=== PATIENT | female | born 1955 | race African-American/Black ===

== ENCOUNTER 2016-11-29 03:15 | Inpatient (IN) | payer OTHER ==
[~2016-11-29] VITALS: Ht 157.5 cm; Wt 60.4 kg
[2016-11-29 04:50] VITALS: BP 113/68
[2016-11-29] MEDS ORDERED: LISI40TA PO (05:55)
[2016-11-29] MEDS ORDERED: MEGE400O PO (05:55)
[2016-11-29] MEDS ORDERED: POTA10CA PO (05:55)
[2016-11-29] MEDS ORDERED: AMLO10TA4 PO (05:55)
[2016-11-29] MEDS ORDERED: ESCI5TAB24 PO (05:55)
[2016-11-29 07:50] VITALS: BP 100/64
[2016-11-29] MEDS ORDERED: HYDROCODONE/APAP 5/325MG TABLET. PO PRN (09:30)
[2016-11-29] MEDS ORDERED: ACETAMINOPHEN 325 MG TABLET. PO PRN (09:30)
[2016-11-29] MEDS ORDERED: ALBUTEROL SULFATE 2.5 MG/3 ML NEBU. NEB PRN (09:30)
[2016-11-29] MEDS ORDERED: ONDANSETRON PF 4 MG/2 ML VIAL. IV PRN (09:30)
[2016-11-29] MEDS ORDERED: hydrALAZINE 20 MG/ML VIAL. IVP PRN (09:30)
--- NOTE | 2016-11-29 09:40 | PDOC1 ---
History and Physical Current Medications Current Medications Current Medications Medications (Trade) Dose Ordered Sig/Isabel Start Time Stop Time Status Last Admin Dose Admin Acetaminophen (Tylenol) 325 mg PRN Q6HRS PRN 11/29/16 09:30 Acetaminophen/ Hydrocodone Bitart (Lortab 5/325) 1 tab PRN Q6HRS PRN 11/29/16 09:30 Albuterol Sulfate (Ventolin Neb Soln) 2.5 mg PRN Q4HRS PRN 11/29/16 09:30 Hydralazine HCl (Apresoline) 10 mg PRN Q4HRS PRN 11/29/16 09:30 Ondansetron HCl (Zofran) 4 mg PRN Q8HRS PRN 11/29/16 09:30 Allergies Allergies Allergies Coded Allergies Type Severity Reaction Last Updated Verified No Known Allergies Allergy Unknown 11/29/16 Yes ROS Review of System couldn't able to obtain, pt is alert, but not communicative, following commands , not talking to staff. Physical Exam Physical Exam GEN.: No apparent distress. Alert non verbal HEENT: Head is normocephalic, atraumatic NECK: Supple. LUNGS: Clear to auscultation. HEART: RRR, S1, S2 present. Peripheral pulses intact ABDOMEN: Soft, nontender. Positive bowel sounds. EXTREMITIES: Without any cyanosis. NEUROLOGIC: normal tone PSYCHIATRIC: flat affect, SKIN: No visible ulcerations Vitals Vitals Vital Signs Date Time Temp Pulse Resp B/P Pulse Ox O2 Delivery O2 Flow Rate FiO2 11/29/16 07:50 98.3 77 19 100/64 97 Room Air 98.3 Labs Labs Laboratory Tests Test 11/29/16 08:22 Troponin I Quantitative < 0.017ng/mL (0.000-0.055) Laboratory Tests Test 11/29/16 08:22 Troponin I Quantitative < 0.017ng/mL (0.000-0.055) VTE Prophylaxis Ordered VTE Prophylaxis Devices: Yes VTE Pharmacological Prophylaxi: Yes CRISTHIAN FRIEDMAN MD Nov 29, 2016 09:40
[2016-11-29] MEDS ORDERED: LEVOFLOXACIN PER PHARMACY MC PRN (10:00)
[2016-11-29] MEDS: IV NORMAL SALINE 1000ML BAG 1,000 ML IV SCH (10:00)
[2016-11-29] MEDS: METRONIDAZOLE 500mg PREMIX 100 ML IV SCH ×3 (10:00→22:08)
[2016-11-29 11:50] VITALS: BP 97/65
[2016-11-29 15:45] VITALS: BP 97/63
--- NOTE | 2016-11-29 17:44 | HP ---
ADMIT DATE: 11/29/2016 CHIEF COMPLAINT: Altered mental status. HISTORY OF PRESENT ILLNESS: A 61-year-old female patient with prior history of depression and hypertension, transferred from [facility] for altered mental status. At the time of my examination, I was not able to get any history from the patient. Most of the history obtained from the chart and staff members. Reportedly, the patient lives by herself at home and she was presented to [facility] for altered mental status upon initial evaluation. The patient was transferred to [facility] for further evaluation. The patient had initial lab work, which showed normal labs except for mild hypokalemia. Urine drug screen also negative. Her baseline status appears to be dementia, unknown type, with hypertension and depression. Her labs showed WBC 10.4, hemoglobin 11.8, and platelets of 230. INR is 1.0. Urine showed specific gravity 1.020, nitrites negative, leuk esterase negative, and a few WBC. Chemistry showed creatinine is 0.9, sodium is 142, potassium is 3.2, anion gap is 10. Troponins is 0.026. Urine drug screen negative for barbiturates, benzos, methadone, opiates, and PCP. Initial EKG did not show any acute ST-T wave changes, personally reviewed. At the time of my examination, the patient is alert, but not responding to any of my questions. As per the report, the patient has been transferred here for General Surgery consultation for possible cholecystitis. Also, she received IV Flagyl and IV ciprofloxacin. PAST MEDICAL HISTORY: Hypertension and depression. PAST SURGICAL HISTORY: . PERSONAL HISTORY: Not able to obtain. REVIEW OF SYSTEMS, PHYSICAL EXAMINATION: Please see my electronic H and P. LABORATORY DATA: Reviewed from the chart. EKG personally reviewed. ASSESSMENT: 1. Altered mental status, unclear etiology. 2. Unknown baseline status. 3. Alzheimer's disease. 4. Depression. 5. Hypertension. 6. Cholelithiasis per report. PLAN: 1. Keep patient n.p.o. I will get a CT of the head and order 1 more set of troponins. 2. Consult General Surgery. 3. I will also try to obtain images from [place] [facility]. 4. Continue IV fluids, keep the patient n.p.o. 5. IV Flagyl and ciprofloxacin until cleared by surgery. 6. We will try to obtain records from family. 7. No prior history obtained from the chart here. 8. Overall prognosis is guarded. 9. The patient is hemodynamically stable at this time. I did not see any source of infection on examination. CRISTHIAN FRIEDMAN MD DR: SUDHIR/marvin JOB#: [id number] / [id number] HARRY
[2016-11-29 19:19] VITALS: BP 113/72
[2016-11-29 22:51] VITALS: BP 124/80
[2016-11-30] VITALS (7 sets, daily range): BP systolic 107–126; BP diastolic 66–83
[2016-11-30 04:16] LABS: BASO % 0 % (0-3); EOS % 1 % (0-3); HEMATOCRIT 35.3 % (36.0-47.0); HEMOGLOBIN 11.6 g/dL (12.0-15.5); LYMPH # 3.3 x10^3/uL (1.0-4.8); LYMPH % 47 % (24-48); MEAN CORPUSCULAR HEMOGLOBIN 30 pg (25-35); MEAN CORPUSCULAR HGB CONC 33 g/dL (31-37); MEAN CORPUSCULAR VOLUME 93 fL (79-100); MONO % 7 % (0-9); NEUT % 45 % (31-73); PLATELET COUNT 184 x10^3/uL (140-400); RED CELL DISTRIBUTION WIDTH 15.3 % (11.5-14.5); WHITE BLOOD COUNT 7.2 x10^3/uL (4.0-11.0)
[2016-11-30 04:35] LABS: CALCIUM 9.6 mg/dL (8.5-10.1); CREATININE 0.6 mg/dL (0.6-1.0); POTASSIUM 3.6 mmol/L (3.5-5.1)
[2016-11-30] MEDS: METRONIDAZOLE 500mg PREMIX 100 ML IV SCH ×3 (05:02→23:41)
[2016-11-30] MEDS: IV NORMAL SALINE 1000ML BAG 1,000 ML IV SCH ×2 (05:27→23:41)
[2016-11-30] MEDS ORDERED: IV RINGERS,LACTATED 1000ML 1,000 ML IV SCH (09:17)
[2016-11-30] MEDS ORDERED: PROCHLORPERAZINE 10 MG/2 ML VIAL. IV PRN (09:30)
[2016-11-30] MEDS ORDERED: MORPHINE SULFATE 2 MG/ML DISP.SYRIN. IV PRN (09:30)
[2016-11-30] MEDS ORDERED: FENTANYL PF 100 MCG/2 ML VIAL. IV PRN ×2 (09:30)
[2016-11-30] MEDS ORDERED: HYDROMORPHONE 2 MG/ML VIAL. IV PRN (09:30)
[2016-11-30] MEDS ORDERED: LIDOCAINE 1% 1 ML SYRINGE. ID PRN (09:30)
[2016-11-30] MEDS ORDERED: HEPARIN 1,000 UNIT in IV NORMAL SALINE 1,000 ML for SURG PERIOP IRR ONE (10:18)
[2016-11-30] MEDS ORDERED: IOHEXOL 300 MG/ML 75 ML VIAL IV ONE ×2 (10:45→11:30)
[2016-11-30] MEDS ORDERED: CONTRAST GIVEN MC PRN ×2 (10:45→11:45)
[2016-11-30] MEDS ORDERED: IOHEXOL 240 MG/ML 50ML VIAL. PO ONE ×2 (10:45→11:30)
--- NOTE | 2016-11-30 12:50 | PDOC ---
PROGRESS NOTES Chief Complaint Chief Complaint cc: cholecystitis 1. Altered mental status, forgetfulness AO times 2 improving. possible due to dementia, 2. Dementia baseline status. 3. Alzheimer's disease. 4. Depression. 5. Hypertension. 6. Cholelithiasis with suspected cholecystitis. Plan NPO IVF GS following, planning for surgery today per RN, pt's baseline dementia getting worse lately CT abdomen/pelvis results pending continue cipro and Levaquin pain control History of Present Illness History of Present Illness no fever no chills better than yesterday Vitals Vitals Vital Signs Date Time Temp Pulse Resp B/P Pulse Ox O2 Delivery O2 Flow Rate FiO2 11/30/16 07:17 Room Air 11/30/16 07:00 98.9 85 18 123/67 98 98.9 Physical Exam General: Alert, Other (times 2 orientatin, name and place. ) Heart: Normal S1, Normal S2 Lungs: Clear, Wheezing Abdomen: Normal bowel sounds, Soft Extremities: No clubbing Labs LABS Laboratory Tests Test 11/30/16 03:33 White Blood Count 7.2x10^3/uL (4.0-11.0) Red Blood Count 3.80x10^6/uL (3.50-5.40) Hemoglobin 11.6g/dL (12.0-15.5) Hematocrit 35.3% (36.0-47.0) Mean Corpuscular Volume 93fL (79-100) Mean Corpuscular Hemoglobin 30pg (25-35) Mean Corpuscular Hemoglobin Concent 33g/dL (31-37) Red Cell Distribution Width 15.3% (11.5-14.5) Platelet Count 184x10^3/uL (140-400) Neutrophils (%) (Auto) 45% (31-73) Lymphocytes (%) (Auto) 47% (24-48) Monocytes (%) (Auto) 7% (0-9) Eosinophils (%) (Auto) 1% (0-3) Basophils (%) (Auto) 0% (0-3) Neutrophils # (Auto) 3.2x10^3uL (1.8-7.7) Lymphocytes # (Auto) 3.3x10^3/uL (1.0-4.8) Monocytes # (Auto) 0.5x10^3/uL (0.0-1.1) Eosinophils # (Auto) 0.0x10^3/uL (0.0-0.7) Basophils # (Auto) 0.0x10^3/uL (0.0-0.2) Sodium Level 143mmol/L (136-145) Potassium Level 3.6mmol/L (3.5-5.1) Chloride Level 108mmol/L (98-107) Carbon Dioxide Level 23mmol/L (21-32) Anion Gap 12 (6-14) Blood Urea Nitrogen 16mg/dL (7-20) Creatinine 0.6mg/dL (0.6-1.0) Estimated GFR (Cockcroft-Gault) 123.0 Glucose Level 80mg/dL (70-99) Calcium Level 9.6mg/dL (8.5-10.1) Lipase 138U/L (73-393) Comment Review of Relevant I have reviewed the following items emma (where applicable) has been applied. Labs Laboratory Tests Test 11/29/16 08:22 11/30/16 03:33 Troponin I Quantitative < 0.017ng/mL (0.000-0.055) White Blood Count 7.2x10^3/uL (4.0-11.0) Red Blood Count 3.80x10^6/uL (3.50-5.40) Hemoglobin 11.6g/dL (12.0-15.5) Hematocrit 35.3% (36.0-47.0) Mean Corpuscular Volume 93fL (79-100) Mean Corpuscular Hemoglobin 30pg (25-35) Mean Corpuscular Hemoglobin Concent 33g/dL (31-37) Red Cell Distribution Width 15.3% (11.5-14.5) Platelet Count 184x10^3/uL (140-400) Neutrophils (%) (Auto) 45% (31-73) Lymphocytes (%) (Auto) 47% (24-48) Monocytes (%) (Auto) 7% (0-9) Eosinophils (%) (Auto) 1% (0-3) Basophils (%) (Auto) 0% (0-3) Neutrophils # (Auto) 3.2x10^3uL (1.8-7.7) Lymphocytes # (Auto) 3.3x10^3/uL (1.0-4.8) Monocytes # (Auto) 0.5x10^3/uL (0.0-1.1) Eosinophils # (Auto) 0.0x10^3/uL (0.0-0.7) Basophils # (Auto) 0.0x10^3/uL (0.0-0.2) Sodium Level 143mmol/L (136-145) Potassium Level 3.6mmol/L (3.5-5.1) Chloride Level 108mmol/L (98-107) Carbon Dioxide Level 23mmol/L (21-32) Anion Gap 12 (6-14) Blood Urea Nitrogen 16mg/dL (7-20) Creatinine 0.6mg/dL (0.6-1.0) Estimated GFR (Cockcroft-Gault) 123.0 Glucose Level 80mg/dL (70-99) Calcium Level 9.6mg/dL (8.5-10.1) Lipase 138U/L (73-393) Laboratory Tests Test 11/30/16 03:33 White Blood Count 7.2x10^3/uL (4.0-11.0) Red Blood Count 3.80x10^6/uL (3.50-5.40) Hemoglobin 11.6g/dL (12.0-15.5) Hematocrit 35.3% (36.0-47.0) Mean Corpuscular Volume 93fL (79-100) Mean Corpuscular Hemoglobin 30pg (25-35) Mean Corpuscular Hemoglobin Concent 33g/dL (31-37) Red Cell Distribution Width 15.3% (11.5-14.5) Platelet Count 184x10^3/uL (140-400) Neutrophils (%) (Auto) 45% (31-73) Lymphocytes (%) (Auto) 47% (24-48) Monocytes (%) (Auto) 7% (0-9) Eosinophils (%) (Auto) 1% (0-3) Basophils (%) (Auto) 0% (0-3) Neutrophils # (Auto) 3.2x10^3uL (1.8-7.7) Lymphocytes # (Auto) 3.3x10^3/uL (1.0-4.8) Monocytes # (Auto) 0.5x10^3/uL (0.0-1.1) Eosinophils # (Auto) 0.0x10^3/uL (0.0-0.7) Basophils # (Auto) 0.0x10^3/uL (0.0-0.2) Sodium Level 143mmol/L (136-145) Potassium Level 3.6mmol/L (3.5-5.1) Chloride Level 108mmol/L (98-107) Carbon Dioxide Level 23mmol/L (21-32) Anion Gap 12 (6-14) Blood Urea Nitrogen 16mg/dL (7-20) Creatinine 0.6mg/dL (0.6-1.0) Estimated GFR (Cockcroft-Gault) 123.0 Glucose Level 80mg/dL (70-99) Calcium Level 9.6mg/dL (8.5-10.1) Lipase 138U/L (73-393) Medications Current Medications Acetaminophen (Tylenol) 325 mg PRN Q6HRS PRN PO MILD PAIN / TEMP; Start at 09:30 Acetaminophen/ Hydrocodone Bitart (Lortab 5/325) 1 tab PRN Q6HRS PRN PO MODERATE TO SEVERE PAIN; Start 11/29/16 at 09:30 Hydralazine HCl (Apresoline) 10 mg PRN Q4HRS PRN IVP ELEVATED BP, SEE COMMENTS ; Start 11/29/16 at 09:30 Ondansetron HCl (Zofran) 4 mg PRN Q8HRS PRN IV NAUSEA/VOMITING; Start 11/29/16 at 09:30 Albuterol Sulfate 2.5 mg 2.5 mg PRN Q4HRS PRN NEB SHORTNESS OF BREATH; Start at 09:30 Sodium Chloride 1,000 ml @ 75 mls/hr [id number] IV Last administered on 11/30/16 05:27; Start 11/29/16 at 10:00 Metronidazole (FLAGYL 500Mmg PREMIX) 100 ml @ 100 mls/hr Q8HRS IV Last administered on 11/30/16 05:02; Start 11/29/16 at 10:00 Levofloxacin/ Dextrose 1 each 1 each PRN DAILY PRN MC SEE COMMENTS; Start at 10:00 Levofloxacin/ Dextrose (LEVAQUIN 500mg PREMIX) 100 ml @ 100 mls/hr [id number] IV Last administered on 11/30/16t 05:27; Start 11/29/16 at 11:00 Fentanyl Citrate (Fentanyl 2ml Vial) 25 mcg PRN Q5MIN PRN IV MILD PAIN; Start 11/30/16 at 09:30; Stop 12/01/16 at 09:29 Fentanyl Citrate (Fentanyl 2ml Vial) 50 mcg PRN Q5MIN PRN IV MODERATE PAIN; Start 11/30/16 at 09:30; Stop 12/01/16 at 09:29 Morphine Sulfate 1 mg 1 mg PRN Q10MIN PRN IV SEVERE PAIN; Start 11/30/16 at 09: 30; Stop 12/01/16 at 09:29 Lactated Ringer's (Iv Lactated Ringers) 1,000 ml @ 0 mls/hr Q0M IV ; Start 11/30 at 09:17; Stop 11/30/16 at 21:16 Lidocaine HCl 2 ml 1X PRN PRN ID IV START; Start 11/30/16 at 09:30; Stop at 09:29 Hydromorphone HCl (Dilaudid) 0.5 mg PRN Q10MIN PRN IV SEV PAIN,Second choice; Start 11/30/16 at 09:30; Stop 12/01/16 at 09:29 Prochlorperazine Edisylate 5 mg 5 mg PACU PRN PRN IV NAUSEA; Start 11/30/16 at 09:30; Stop 12/01/16 at 09:29 Heparin Sodium (Porcine)/Sodium Chloride (Iv Sodium Chloride 0.9% 1000ml Bag) 1, 001 ml @ 1,001 mls/hr 1X PERIOP ONCE IRR ; Start 11/30/16 at 10:18; Stop at 11:17; Status DC Iohexol (Omnipaque 240 Mg/ml) 30 ml 1X ONCE PO ; Start 11/30/16 at 10:45; Stop 11/30/16 at 10:46; Status DC Iohexol (Omnipaque 300 Mg/ml) 75 ml 1X ONCE IV ; Start 11/30/16 at 10:45; Stop 11/30/16 at 10:46; Status DC Info (Do NOT chart on this entry -- for MONITORING) 1 each PRN DAILY PRN MC SEE COMMENTS; Start 11/30/16 at 10:45; Stop 12/02/16 at 10:44 Iohexol (Omnipaque 240 Mg/ml) 30 ml 1X ONCE PO ; Start 11/30/16 at 11:30; Stop 11/30/16 at 11:35; Status DC Iohexol (Omnipaque 300 Mg/ml) 75 ml 1X ONCE IV ; Start 11/30/16 at 11:30; Stop 11/30/16 at 11:35; Status DC Info (Do NOT chart on this entry -- for MONITORING) 1 each PRN DAILY PRN MC SEE COMMENTS; Start 11/30/16 at 11:45; Stop 12/02/16 at 11:44 Active Scripts Active Reported Lexapro (Escitalopram Oxalate) 5 Mg Tablet 5 Mg PO DAILY Norvasc (Amlodipine Besylate) 10 Mg Tablet 10 Mg PO DAILY Lisinopril 40 Mg Tablet 40 Mg PO DAILY Potassium Chloride 10 Meq Capsule.er 10 Meq PO DAILY Megace (Megestrol Acetate) 400 Mg/10 Ml Oral.susp 400 Mg PO TIDAC Vitals/I & O Vital Sign - Last 24 Hours 11/29/16 11/29/16 11/29/16 11/29/16 15:45 19:19 20:00 22:51 Temp 97.8 98.5 98.5 97.8 98.5 98.5 Pulse 82 86 89 Resp 18 16 B/P 97/63 113/72 124/80 Pulse Ox 100 99 98 O2 Delivery Room Air Room Air Room Air Room Air 11/30/16 11/30/16 11/30/16 03:41 07:00 07:17 Temp 98.1 98.9 98.1 98.9 Pulse 80 85 Resp 16 18 B/P 126/83 123/67 Pulse Ox 97 98 O2 Delivery Room Air Room Air Room Air Intake and Output 11/29/16 11/29/16 11/30/16 15:00 23:00 07:00 Intake Total 493 ml 0 ml Balance 493 ml 0 ml CRISTHIAN FRIEDMAN MD Nov 30, 2016 12:50
--- NOTE | 2016-11-30 14:29 | RAD ---
CT study of the abdomen and pelvis with contrast Clinical indications: Abdominal pain. Pancreatitis. Technique: After IV infusion of 75 cc of Omnipaque 300, helical CT scanning of the abdomen and pelvis was performed. GI contrast was administered per mouth. PQRS Compliance Statement: One or more of the following individualized dose reduction techniques were utilized for this examination: 1. Automated exposure control 2. Adjustment of the mA and/or kV according to patient size 3. Use of iterative reconstruction technique Comparison: None available. Findings: The liver and spleen are normal. Gallstones are seen within the gallbladder. The largest measures 2.5 cm. No gallbladder wall thickening is evident. There is dilatation of the extra hepatic biliary tree measuring up to 13 mm. There is a density within the common bile duct which could represent a common bile duct stone. The pancreas enhances homogeneously. No peripancreatic inflammatory change or free fluid or pseudocyst is seen. No adrenal mass is evident. There is decreased enhancement of the posterior superior aspect of the right kidney. This may be seen with pyelonephritis. No hydronephrosis is seen on either side. Urinary bladder is nondistended. No uterine mass or fibroid is seen. No dominant ovarian cyst or mass is seen. No obstructive bowel pattern is seen. No free fluid or free air or mesenteric inflammatory change is seen. The appendix and terminal ileum are unremarkable. No lung base consolidation is evident. No osteolytic process is seen. There is a nodule of the lateral aspect of the right breast. IMPRESSION: Cholelithiasis. Dilatation of the extra hepatic biliary tree measuring up to 13 mm. A density is seen within the common bile duct which may represent a common bile duct stone. Right-sided pyelonephritis. Nodule of the lateral aspect of the right breast. Recommend outpatient diagnostic bilateral mammography.
--- NOTE | 2016-11-30 15:36 | PDOC2 ---
GI CONSULT Reason For Consult: Choledocholithiasis HPI: HPI: 61 y/o AA female w/ dementia. History from EMR, paper chart, and staff. She was apparently found at home by her daughter, asleep w/ the door open and the sink overflowing with water; this prompted evaluation at [facility] ER for AMS. Labs there significant for lipase 586, total bili 0.5, Alk Phos 94, ALT 72, AST 53. CXR and CT head were unremarkable. Abd US showed gallbladder packed w/ calculi w/ borderline gallbladder wall thickening and likely fatty liver. She was started on IV antibiotics and transferred to [facility] for possible cholecystectomy. Here, labs showed normal WBC, Hgb 11.6, lipase 138. CT A/P showed cholelithiasis, dilatation of the extra hepatic biliary tree (up to 13 mm), and a density (possible stone) within the common bile duct, right-sided pyelonephritis, and right breast nodule. Surgery was cancelled. She is alone in her room this afternoon. Per RN has not complained of pain. She denies GI complaints including abdominal pain, n/v, diarrhea, constipation, bleeding, or change in appetite, but is obviously suspect historian. Note made of apparent unintentional weight loss per chart. PMH: PMH: per chart - dementia, HTN, depression, COPD, arthritis, ROS: Per HPI. VItals: Vitals: Vital Signs Date Time Temp Pulse Resp B/P Pulse Ox O2 Delivery O2 Flow Rate FiO2 11/30/16 14:42 98.4 91 18 115/71 98 Room Air 98.4 Labs: Labs: Laboratory Tests Test 11/30/16 03:33 White Blood Count 7.2x10^3/uL (4.0-11.0) Red Blood Count 3.80x10^6/uL (3.50-5.40) Hemoglobin 11.6g/dL (12.0-15.5) Hematocrit 35.3% (36.0-47.0) Mean Corpuscular Volume 93fL (79-100) Mean Corpuscular Hemoglobin 30pg (25-35) Mean Corpuscular Hemoglobin Concent 33g/dL (31-37) Red Cell Distribution Width 15.3% (11.5-14.5) Platelet Count 184x10^3/uL (140-400) Neutrophils (%) (Auto) 45% (31-73) Lymphocytes (%) (Auto) 47% (24-48) Monocytes (%) (Auto) 7% (0-9) Eosinophils (%) (Auto) 1% (0-3) Basophils (%) (Auto) 0% (0-3) Neutrophils # (Auto) 3.2x10^3uL (1.8-7.7) Lymphocytes # (Auto) 3.3x10^3/uL (1.0-4.8) Monocytes # (Auto) 0.5x10^3/uL (0.0-1.1) Eosinophils # (Auto) 0.0x10^3/uL (0.0-0.7) Basophils # (Auto) 0.0x10^3/uL (0.0-0.2) Sodium Level 143mmol/L (136-145) Potassium Level 3.6mmol/L (3.5-5.1) Chloride Level 108mmol/L (98-107) Carbon Dioxide Level 23mmol/L (21-32) Anion Gap 12 (6-14) Blood Urea Nitrogen 16mg/dL (7-20) Creatinine 0.6mg/dL (0.6-1.0) Estimated GFR (Cockcroft-Gault) 123.0 Glucose Level 80mg/dL (70-99) Calcium Level 9.6mg/dL (8.5-10.1) Lipase 138U/L (73-393) Allergies: Coded Allergies: No Known Allergies (Verified Allergy, Unknown, 11/29/16) Medications: Current Medications Medications (Trade) Dose Ordered Sig/Isabel Route PRN Reason Start Time Stop Time Status Last Admin Dose Admin Iohexol (Omnipaque 300 Mg/ml) 75 ml 1X ONCE IV 11/30/16 10:45 11/30/16 10:46 DC 11/30/16 10:45 Imaging: Imaging: CT A/P w/ oral and IV contrast 11/30/16 IMPRESSION: Cholelithiasis. Dilatation of the extra hepatic biliary tree measuring up to 13 mm. A density is seen within the common bile duct which may represent a common bile duct stone. Right-sided pyelonephritis. Nodule of the lateral aspect of the right breast. Recommend outpatient diagnostic bilateral mammography. PE: GEN: NAD HEENT: Atraumatic, PERRL LUNGS: CTAB anteriorly HEART: RRR ABD: NABS, S/ND/NT EXTREMITY: No edema SKIN: No rashes, no jaundice NEURO/PSYCH: cooperative, confused A/P: A/P: AMS w/ dementia -brought to [facility], transferred to [facility] for possible cholecystectomy Cholelithiasis w/ possible choledocholithiasis -imaging and labs as above -on IV antibiotics -- D/w Dr. Freedman - will check STAT LFTs. AMARIS IRENE Nov 30, 2016 15:36
[2016-11-30 16:01] LABS: ALBUMIN 3.1 g/dL (3.4-5.0); DIRECT BILIRUBIN 0.2 mg/dL (0.0-0.2); TOTAL BILIRUBIN 0.9 mg/dL (0.2-1.0)
--- NOTE | 2016-11-30 16:16 | PDOC ---
SURGICAL PROGRESS NOTE Subjective 61 yo F with gallstone pancreatitis, CBD stones, cholelithiasis GI consult will consider lap rosemary with grams pending evaluation d/w pt's daughter Thanks for consult! [id number] Vital Signs Vital Signs Date Time Temp Pulse Resp B/P Pulse Ox O2 Delivery O2 Flow Rate FiO2 11/30/16 14:42 98.4 91 18 115/71 98 Room Air 98.4 I&O Intake and Output 11/30/16 07:00 Intake Total 493 ml Balance 493 ml Intake Oral 0 ml Other 493 ml # Voids 7 Labs Laboratory Tests Test 11/29/16 08:22 11/30/16 03:33 Troponin I Quantitative < 0.017ng/mL (0.000-0.055) White Blood Count 7.2x10^3/uL (4.0-11.0) Red Blood Count 3.80x10^6/uL (3.50-5.40) Hemoglobin 11.6g/dL (12.0-15.5) Hematocrit 35.3% (36.0-47.0) Mean Corpuscular Volume 93fL (79-100) Mean Corpuscular Hemoglobin 30pg (25-35) Mean Corpuscular Hemoglobin Concent 33g/dL (31-37) Red Cell Distribution Width 15.3% (11.5-14.5) Platelet Count 184x10^3/uL (140-400) Neutrophils (%) (Auto) 45% (31-73) Lymphocytes (%) (Auto) 47% (24-48) Monocytes (%) (Auto) 7% (0-9) Eosinophils (%) (Auto) 1% (0-3) Basophils (%) (Auto) 0% (0-3) Neutrophils # (Auto) 3.2x10^3uL (1.8-7.7) Lymphocytes # (Auto) 3.3x10^3/uL (1.0-4.8) Monocytes # (Auto) 0.5x10^3/uL (0.0-1.1) Eosinophils # (Auto) 0.0x10^3/uL (0.0-0.7) Basophils # (Auto) 0.0x10^3/uL (0.0-0.2) Sodium Level 143mmol/L (136-145) Potassium Level 3.6mmol/L (3.5-5.1) Chloride Level 108mmol/L (98-107) Carbon Dioxide Level 23mmol/L (21-32) Anion Gap 12 (6-14) Blood Urea Nitrogen 16mg/dL (7-20) Creatinine 0.6mg/dL (0.6-1.0) Estimated GFR (Cockcroft-Gault) 123.0 Glucose Level 80mg/dL (70-99) Calcium Level 9.6mg/dL (8.5-10.1) Total Bilirubin 0.9mg/dL (0.2-1.0) Direct Bilirubin 0.2mg/dL (0.0-0.2) Aspartate Amino Transf (AST/SGOT) 25U/L (15-37) Alanine Aminotransferase (ALT/SGPT) 44U/L (14-59) Alkaline Phosphatase 76U/L (46-116) Total Protein 6.0g/dL (6.4-8.2) Albumin 3.1g/dL (3.4-5.0) Lipase 138U/L (73-393) Laboratory Tests Test 11/30/16 03:33 White Blood Count 7.2x10^3/uL (4.0-11.0) Red Blood Count 3.80x10^6/uL (3.50-5.40) Hemoglobin 11.6g/dL (12.0-15.5) Hematocrit 35.3% (36.0-47.0) Mean Corpuscular Volume 93fL (79-100) Mean Corpuscular Hemoglobin 30pg (25-35) Mean Corpuscular Hemoglobin Concent 33g/dL (31-37) Red Cell Distribution Width 15.3% (11.5-14.5) Platelet Count 184x10^3/uL (140-400) Neutrophils (%) (Auto) 45% (31-73) Lymphocytes (%) (Auto) 47% (24-48) Monocytes (%) (Auto) 7% (0-9) Eosinophils (%) (Auto) 1% (0-3) Basophils (%) (Auto) 0% (0-3) Neutrophils # (Auto) 3.2x10^3uL (1.8-7.7) Lymphocytes # (Auto) 3.3x10^3/uL (1.0-4.8) Monocytes # (Auto) 0.5x10^3/uL (0.0-1.1) Eosinophils # (Auto) 0.0x10^3/uL (0.0-0.7) Basophils # (Auto) 0.0x10^3/uL (0.0-0.2) Sodium Level 143mmol/L (136-145) Potassium Level 3.6mmol/L (3.5-5.1) Chloride Level 108mmol/L (98-107) Carbon Dioxide Level 23mmol/L (21-32) Anion Gap 12 (6-14) Blood Urea Nitrogen 16mg/dL (7-20) Creatinine 0.6mg/dL (0.6-1.0) Estimated GFR (Cockcroft-Gault) 123.0 Glucose Level 80mg/dL (70-99) Calcium Level 9.6mg/dL (8.5-10.1) Total Bilirubin 0.9mg/dL (0.2-1.0) Direct Bilirubin 0.2mg/dL (0.0-0.2) Aspartate Amino Transf (AST/SGOT) 25U/L (15-37) Alanine Aminotransferase (ALT/SGPT) 44U/L (14-59) Alkaline Phosphatase 76U/L (46-116) Total Protein 6.0g/dL (6.4-8.2) Albumin 3.1g/dL (3.4-5.0) Lipase 138U/L (73-393) RADHA LOVE MD Nov 30, 2016 16:16
[2016-12-01 03:00] VITALS: BP 112/66
[2016-12-01] MEDS: METRONIDAZOLE 500mg PREMIX 100 ML IV SCH ×2 (05:33→16:03)
[2016-12-01 06:01] LABS: BASO % 1 % (0-3); EOS % 1 % (0-3); HEMATOCRIT 27.2 % (36.0-47.0); HEMOGLOBIN 9.3 g/dL (12.0-15.5); LYMPH # 2.1 x10^3/uL (1.0-4.8); LYMPH % 39 % (24-48); MEAN CORPUSCULAR HEMOGLOBIN 31 pg (25-35); MEAN CORPUSCULAR HGB CONC 34 g/dL (31-37); MEAN CORPUSCULAR VOLUME 92 fL (79-100); MONO % 8 % (0-9); NEUT % 52 % (31-73); PLATELET COUNT 185 x10^3/uL (140-400); RED BLOOD COUNT 2.96 x10^6/uL (3.50-5.40); RED CELL DISTRIBUTION WIDTH 14.9 % (11.5-14.5); WHITE BLOOD COUNT 5.3 x10^3/uL (4.0-11.0)
[2016-12-01 06:06] LABS: CALCIUM 9.1 mg/dL (8.5-10.1); CREATININE 0.7 mg/dL (0.6-1.0); GFR 102.9; POTASSIUM 3.4 mmol/L (3.5-5.1)
[2016-12-01 07:00] VITALS: BP 118/80
--- NOTE | 2016-12-01 08:26 | RAD ---
RIGHT BREAST SONOGRAPHY Clinical indications: Nodule seen within the lateral aspect of the right breast on recent CT study of the abdomen and pelvis Findings: High-resolution sonography of the lateral one half of the right breast was performed. No focal sonographic abnormality is seen. Benign-appearing right axillary lymph nodes are seen. IMPRESSION: No focal sonographic abnormality is seen within the lateral aspect of the right breast to correspond to the CT finding. Recommend bilateral diagnostic mammography. BI-RADS Category 0 A, additional imaging is recommended.
--- NOTE | 2016-12-01 09:17 | PDOC ---
HELLEN KATZ [employer] 12/01/16 0917: SURGICAL PROGRESS NOTE Subjective denies pain just back from MRCP Vital Signs Vital Signs Date Time Temp Pulse Resp B/P Pulse Ox O2 Delivery O2 Flow Rate FiO2 12/01/16 07:00 98.3 84 18 118/80 97 Room Air 98.3 I&O Intake and Output 12/01/16 07:00 Intake Total 0 ml Balance 0 ml Intake Oral 0 ml # Voids 5 General: Alert, Oriented X3, Cooperative Abdomen: Soft, Other (ND, NTTP) Labs Laboratory Tests Test 11/30/16 03:33 12/01/16 05:10 White Blood Count 7.2x10^3/uL (4.0-11.0) 5.3x10^3/uL (4.0-11.0) Red Blood Count 3.80x10^6/uL (3.50-5.40) 2.96x10^6/uL (3.50-5.40) Hemoglobin 11.6g/dL (12.0-15.5) 9.3g/dL (12.0-15.5) Hematocrit 35.3% (36.0-47.0) 27.2% (36.0-47.0) Mean Corpuscular Volume 93fL (79-100) 92fL (79-100) Mean Corpuscular Hemoglobin 30pg (25-35) 31pg (25-35) Mean Corpuscular Hemoglobin Concent 33g/dL (31-37) 34g/dL (31-37) Red Cell Distribution Width 15.3% (11.5-14.5) 14.9% (11.5-14.5) Platelet Count 184x10^3/uL (140-400) 185x10^3/uL (140-400) Neutrophils (%) (Auto) 45% (31-73) 52% (31-73) Lymphocytes (%) (Auto) 47% (24-48) 39% (24-48) Monocytes (%) (Auto) 7% (0-9) 8% (0-9) Eosinophils (%) (Auto) 1% (0-3) 1% (0-3) Basophils (%) (Auto) 0% (0-3) 1% (0-3) Neutrophils # (Auto) 3.2x10^3uL (1.8-7.7) 2.8x10^3uL (1.8-7.7) Lymphocytes # (Auto) 3.3x10^3/uL (1.0-4.8) 2.1x10^3/uL (1.0-4.8) Monocytes # (Auto) 0.5x10^3/uL (0.0-1.1) 0.4x10^3/uL (0.0-1.1) Eosinophils # (Auto) 0.0x10^3/uL (0.0-0.7) 0.0x10^3/uL (0.0-0.7) Basophils # (Auto) 0.0x10^3/uL (0.0-0.2) 0.0x10^3/uL (0.0-0.2) Sodium Level 143mmol/L (136-145) 144mmol/L (136-145) Potassium Level 3.6mmol/L (3.5-5.1) 3.4mmol/L (3.5-5.1) Chloride Level 108mmol/L (98-107) 112mmol/L (98-107) Carbon Dioxide Level 23mmol/L (21-32) 20mmol/L (21-32) Anion Gap 12 (6-14) 12 (6-14) Blood Urea Nitrogen 16mg/dL (7-20) 8mg/dL (7-20) Creatinine 0.6mg/dL (0.6-1.0) 0.7mg/dL (0.6-1.0) Estimated GFR (Cockcroft-Gault) 123.0 102.9 Glucose Level 80mg/dL (70-99) 72mg/dL (70-99) Calcium Level 9.6mg/dL (8.5-10.1) 9.1mg/dL (8.5-10.1) Total Bilirubin 0.9mg/dL (0.2-1.0) Direct Bilirubin 0.2mg/dL (0.0-0.2) Aspartate Amino Transf (AST/SGOT) 25U/L (15-37) Alanine Aminotransferase (ALT/SGPT) 44U/L (14-59) Alkaline Phosphatase 76U/L (46-116) Total Protein 6.0g/dL (6.4-8.2) Albumin 3.1g/dL (3.4-5.0) Lipase 138U/L (73-393) 95U/L (73-393) Laboratory Tests Test 12/01/16 05:10 White Blood Count 5.3x10^3/uL (4.0-11.0) Red Blood Count 2.96x10^6/uL (3.50-5.40) Hemoglobin 9.3g/dL (12.0-15.5) Hematocrit 27.2% (36.0-47.0) Mean Corpuscular Volume 92fL (79-100) Mean Corpuscular Hemoglobin 31pg (25-35) Mean Corpuscular Hemoglobin Concent 34g/dL (31-37) Red Cell Distribution Width 14.9% (11.5-14.5) Platelet Count 185x10^3/uL (140-400) Neutrophils (%) (Auto) 52% (31-73) Lymphocytes (%) (Auto) 39% (24-48) Monocytes (%) (Auto) 8% (0-9) Eosinophils (%) (Auto) 1% (0-3) Basophils (%) (Auto) 1% (0-3) Neutrophils # (Auto) 2.8x10^3uL (1.8-7.7) Lymphocytes # (Auto) 2.1x10^3/uL (1.0-4.8) Monocytes # (Auto) 0.4x10^3/uL (0.0-1.1) Eosinophils # (Auto) 0.0x10^3/uL (0.0-0.7) Basophils # (Auto) 0.0x10^3/uL (0.0-0.2) Sodium Level 144mmol/L (136-145) Potassium Level 3.4mmol/L (3.5-5.1) Chloride Level 112mmol/L (98-107) Carbon Dioxide Level 20mmol/L (21-32) Anion Gap 12 (6-14) Blood Urea Nitrogen 8mg/dL (7-20) Creatinine 0.7mg/dL (0.6-1.0) Estimated GFR (Cockcroft-Gault) 102.9 Glucose Level 72mg/dL (70-99) Calcium Level 9.1mg/dL (8.5-10.1) Lipase 95U/L (73-393) Assessment/Plan cholelithiasis, possible choledocholithiasis MRCP pending Problems: RADHA LOVE MD 12/01/16 1134: SURGICAL PROGRESS NOTE Assessment/Plan Pt seen and examined. Agree with Ms. Katz's note Pt without c/o, looks brighter and is more responsive abd soft, ND, NTTP MRCP-no obvious CBD stone pt appears to be improving with supportive care and abx agree with continued supportive care, evaluation of mental status per primary and discharge planning would consider elective lap rosemary with grams, given concern for pancreatitis ( although otherwise seems asymptomatic), but recommend resolution of current medical issues Problems: HELLEN KATZ APRN Dec 01, 2016 09:17 RADHA LOVE MD Dec 01, 2016 11:34
--- NOTE | 2016-12-01 09:41 | RAD ---
MRI abdomen without contrast and MRCP: Clinical indications: Abdominal pain. Choledocholithiasis. Technique: T1 and T2 weighted MRI sequences of the abdomen was performed in the axial and coronal planes. In phase and out of phase MRI sequences were performed. Using a single shot heavily T2-weighted fast spin-echo and MIP algorithm, 3-D reconstructed MRCP was generated. Findings: MRI abdomen:: The liver is homogeneous in appearance. The spleen is homogeneous in appearance. The pancreas is homogeneous in appearance. Gallstones are seen within the gallbladder. No gallbladder wall thickening is seen. The largest gallstone measures 3 cm. No adrenal mass is evident. No bright signal edema is seen within the upper pole of the right kidney to correspond to the CT finding. Low signal is present here on the T2-weighted images. Therefore, this could represent focal scarring from chronic pyelonephritis rather than acute pyelonephritis. No focal aneurysmal dilatation of the abdominal aorta is seen. No enlarged abdominal lymphadenopathy is seen. No ascites is seen. MRCP: There is mild dilatation of the extrahepatic biliary tree. The proximal common bile duct measures up to 9 mm. No round filling defect is seen to indicate a stone. There is some mild diffuse low signal within the extra hepatic biliary tree on the T2 weighted images. This may represent artifact or could be seen with biliary sludge. No biliary stricture is seen otherwise. The main pancreatic duct measures 2.5 mm which is within normal limits. Impression: Cholelithiasis. Mild dilatation of the extrahepatic biliary tree measuring 9 mm. No round common bile duct stone is seen. Diffuse low signal within the extrahepatic biliary tree may represent artifact or biliary sludge. The CT finding within the upper pole of the right kidney may represent chronic pyelonephritis.
[2016-12-01 10:38] VITALS: BP 111/68
--- NOTE | 2016-12-01 10:47 | PDOC ---
Subjective: Subjective: Denies pain. Objective: Objective: Per RN - denies pain, usually gives one word answers, confused. Vital Signs: Vital Signs Date Time Temp Pulse Resp B/P Pulse Ox O2 Delivery O2 Flow Rate FiO2 12/01/16 10:38 97.9 83 18 111/68 98 Room Air 97.9 Labs: Laboratory Tests Test 12/01/16 05:10 White Blood Count 5.3x10^3/uL Red Blood Count 2.96x10^6/uL Hemoglobin 9.3g/dL Hematocrit 27.2% Mean Corpuscular Volume 92fL Mean Corpuscular Hemoglobin 31pg Mean Corpuscular Hemoglobin Concent 34g/dL Red Cell Distribution Width 14.9% Platelet Count 185x10^3/uL Neutrophils (%) (Auto) 52% Lymphocytes (%) (Auto) 39% Monocytes (%) (Auto) 8% Eosinophils (%) (Auto) 1% Basophils (%) (Auto) 1% Neutrophils # (Auto) 2.8x10^3uL Lymphocytes # (Auto) 2.1x10^3/uL Monocytes # (Auto) 0.4x10^3/uL Eosinophils # (Auto) 0.0x10^3/uL Basophils # (Auto) 0.0x10^3/uL Sodium Level 144mmol/L Potassium Level 3.4mmol/L Chloride Level 112mmol/L Carbon Dioxide Level 20mmol/L Anion Gap 12 Blood Urea Nitrogen 8mg/dL Creatinine 0.7mg/dL Estimated GFR (Cockcroft-Gault) 102.9 Glucose Level 72mg/dL Calcium Level 9.1mg/dL Lipase 95U/L Imaging: MRCP 12/01/16 Impression: Cholelithiasis. Mild dilatation of the extrahepatic biliary tree measuring 9mm. No round common bile duct stone is seen. Diffuse low signal within the extrahepatic biliary tree may represent artifact or biliary sludge. The CT finding within the upper pole of the right kidney may represent chronic pyelonephritis. Right Breast US 11/30/16 IMPRESSION: No focal sonographic abnormality is seen within the lateral aspect of the right breast to correspond to the CT finding. Recommend bilateral diagnostic mammography. PE: GEN: NAD, up to chair LUNGS: CTAB HEART: RRR ABD: NABS, S/ND/NT NEURO/PSYCH: confused A/P: AMS w/ dementia Cholelithiasis -possible choledocholithiasis on CT, not evident on MRI -on IV antibiotics, surgery following -LFTs, lipase WNL -- Will review w/ Dr. Freedman. AMARIS IRENE Dec 01, 2016 10:47
[2016-12-01] MEDS ORDERED: AA 3%/ELECTROLYTE-TPN SOLN/GLY 1,000 ML IV SCH (11:45)
[2016-12-01] MEDS ORDERED: POTASSIUM CHLORIDE 20 MEQ TABLET.ER. PO ONE (12:15)
--- NOTE | 2016-12-01 12:15 | PDOC ---
PROGRESS NOTES Chief Complaint Chief Complaint cc: cholecystitis 1. Altered mental status, forgetfulness AO times 2 improving. possible due to dementia, 2. Dementia baseline status. 3. Alzheimer's disease. 4. Depression. 5. Hypertension. 6. Cholelithiasis with suspected cholecystitis. Plan final surgical and GI recommendations pending. PPN MRCP results reviwed, need out pt mammogram per family, she is at her baseline mental state. History of Present Illness History of Present Illness no fever no chills better than yesterday Vitals Vitals Vital Signs Date Time Temp Pulse Resp B/P Pulse Ox O2 Delivery O2 Flow Rate FiO2 12/01/16 10:38 97.9 83 18 111/68 98 Room Air 97.9 Physical Exam General: Alert, Cooperative Heart: Normal S1, Normal S2 Lungs: Clear, Wheezing Abdomen: Soft, Other (ND, NTTP) Extremities: No clubbing Labs LABS Laboratory Tests Test 12/01/16 05:10 White Blood Count 5.3x10^3/uL (4.0-11.0) Red Blood Count 2.96x10^6/uL (3.50-5.40) Hemoglobin 9.3g/dL (12.0-15.5) Hematocrit 27.2% (36.0-47.0) Mean Corpuscular Volume 92fL (79-100) Mean Corpuscular Hemoglobin 31pg (25-35) Mean Corpuscular Hemoglobin Concent 34g/dL (31-37) Red Cell Distribution Width 14.9% (11.5-14.5) Platelet Count 185x10^3/uL (140-400) Neutrophils (%) (Auto) 52% (31-73) Lymphocytes (%) (Auto) 39% (24-48) Monocytes (%) (Auto) 8% (0-9) Eosinophils (%) (Auto) 1% (0-3) Basophils (%) (Auto) 1% (0-3) Neutrophils # (Auto) 2.8x10^3uL (1.8-7.7) Lymphocytes # (Auto) 2.1x10^3/uL (1.0-4.8) Monocytes # (Auto) 0.4x10^3/uL (0.0-1.1) Eosinophils # (Auto) 0.0x10^3/uL (0.0-0.7) Basophils # (Auto) 0.0x10^3/uL (0.0-0.2) Sodium Level 144mmol/L (136-145) Potassium Level 3.4mmol/L (3.5-5.1) Chloride Level 112mmol/L (98-107) Carbon Dioxide Level 20mmol/L (21-32) Anion Gap 12 (6-14) Blood Urea Nitrogen 8mg/dL (7-20) Creatinine 0.7mg/dL (0.6-1.0) Estimated GFR (Cockcroft-Gault) 102.9 Glucose Level 72mg/dL (70-99) Calcium Level 9.1mg/dL (8.5-10.1) Lipase 95U/L (73-393) Assessment and Plan Assessmemt and Plan Problems Medical Problems: (1) Cholelithiasis Status: Acute Problems: Comment Review of Relevant I have reviewed the following items emma (where applicable) has been applied. Labs Laboratory Tests Test 11/30/16 03:33 12/01/16 05:10 White Blood Count 7.2x10^3/uL (4.0-11.0) 5.3x10^3/uL (4.0-11.0) Red Blood Count 3.80x10^6/uL (3.50-5.40) 2.96x10^6/uL (3.50-5.40) Hemoglobin 11.6g/dL (12.0-15.5) 9.3g/dL (12.0-15.5) Hematocrit 35.3% (36.0-47.0) 27.2% (36.0-47.0) Mean Corpuscular Volume 93fL (79-100) 92fL (79-100) Mean Corpuscular Hemoglobin 30pg (25-35) 31pg (25-35) Mean Corpuscular Hemoglobin Concent 33g/dL (31-37) 34g/dL (31-37) Red Cell Distribution Width 15.3% (11.5-14.5) 14.9% (11.5-14.5) Platelet Count 184x10^3/uL (140-400) 185x10^3/uL (140-400) Neutrophils (%) (Auto) 45% (31-73) 52% (31-73) Lymphocytes (%) (Auto) 47% (24-48) 39% (24-48) Monocytes (%) (Auto) 7% (0-9) 8% (0-9) Eosinophils (%) (Auto) 1% (0-3) 1% (0-3) Basophils (%) (Auto) 0% (0-3) 1% (0-3) Neutrophils # (Auto) 3.2x10^3uL (1.8-7.7) 2.8x10^3uL (1.8-7.7) Lymphocytes # (Auto) 3.3x10^3/uL (1.0-4.8) 2.1x10^3/uL (1.0-4.8) Monocytes # (Auto) 0.5x10^3/uL (0.0-1.1) 0.4x10^3/uL (0.0-1.1) Eosinophils # (Auto) 0.0x10^3/uL (0.0-0.7) 0.0x10^3/uL (0.0-0.7) Basophils # (Auto) 0.0x10^3/uL (0.0-0.2) 0.0x10^3/uL (0.0-0.2) Sodium Level 143mmol/L (136-145) 144mmol/L (136-145) Potassium Level 3.6mmol/L (3.5-5.1) 3.4mmol/L (3.5-5.1) Chloride Level 108mmol/L (98-107) 112mmol/L (98-107) Carbon Dioxide Level 23mmol/L (21-32) 20mmol/L (21-32) Anion Gap 12 (6-14) 12 (6-14) Blood Urea Nitrogen 16mg/dL (7-20) 8mg/dL (7-20) Creatinine 0.6mg/dL (0.6-1.0) 0.7mg/dL (0.6-1.0) Estimated GFR (Cockcroft-Gault) 123.0 102.9 Glucose Level 80mg/dL (70-99) 72mg/dL (70-99) Calcium Level 9.6mg/dL (8.5-10.1) 9.1mg/dL (8.5-10.1) Total Bilirubin 0.9mg/dL (0.2-1.0) Direct Bilirubin 0.2mg/dL (0.0-0.2) Aspartate Amino Transf (AST/SGOT) 25U/L (15-37) Alanine Aminotransferase (ALT/SGPT) 44U/L (14-59) Alkaline Phosphatase 76U/L (46-116) Total Protein 6.0g/dL (6.4-8.2) Albumin 3.1g/dL (3.4-5.0) Lipase 138U/L (73-393) 95U/L (73-393) Laboratory Tests Test 12/01/16 05:10 White Blood Count 5.3x10^3/uL (4.0-11.0) Red Blood Count 2.96x10^6/uL (3.50-5.40) Hemoglobin 9.3g/dL (12.0-15.5) Hematocrit 27.2% (36.0-47.0) Mean Corpuscular Volume 92fL (79-100) Mean Corpuscular Hemoglobin 31pg (25-35) Mean Corpuscular Hemoglobin Concent 34g/dL (31-37) Red Cell Distribution Width 14.9% (11.5-14.5) Platelet Count 185x10^3/uL (140-400) Neutrophils (%) (Auto) 52% (31-73) Lymphocytes (%) (Auto) 39% (24-48) Monocytes (%) (Auto) 8% (0-9) Eosinophils (%) (Auto) 1% (0-3) Basophils (%) (Auto) 1% (0-3) Neutrophils # (Auto) 2.8x10^3uL (1.8-7.7) Lymphocytes # (Auto) 2.1x10^3/uL (1.0-4.8) Monocytes # (Auto) 0.4x10^3/uL (0.0-1.1) Eosinophils # (Auto) 0.0x10^3/uL (0.0-0.7) Basophils # (Auto) 0.0x10^3/uL (0.0-0.2) Sodium Level 144mmol/L (136-145) Potassium Level 3.4mmol/L (3.5-5.1) Chloride Level 112mmol/L (98-107) Carbon Dioxide Level 20mmol/L (21-32) Anion Gap 12 (6-14) Blood Urea Nitrogen 8mg/dL (7-20) Creatinine 0.7mg/dL (0.6-1.0) Estimated GFR (Cockcroft-Gault) 102.9 Glucose Level 72mg/dL (70-99) Calcium Level 9.1mg/dL (8.5-10.1) Lipase 95U/L (73-393) Medications Current Medications Acetaminophen (Tylenol) 325 mg PRN Q6HRS PRN PO MILD PAIN / TEMP; Start at 09:30 Acetaminophen/ Hydrocodone Bitart (Lortab 5/325) 1 tab PRN Q6HRS PRN PO MODERATE TO SEVERE PAIN; Start 11/29/16 at 09:30 Hydralazine HCl (Apresoline) 10 mg PRN Q4HRS PRN IVP ELEVATED BP, SEE COMMENTS ; Start 11/29/16 at 09:30 Ondansetron HCl (Zofran) 4 mg PRN Q8HRS PRN IV NAUSEA/VOMITING; Start 11/29/16 at 09:30 Albuterol Sulfate 2.5 mg 2.5 mg PRN Q4HRS PRN NEB SHORTNESS OF BREATH; Start at 09:30 Sodium Chloride 1,000 ml @ 75 mls/hr [id number] IV Last administered on 11/30/16 23:41; Start 11/29/16 at 10:00; Stop 12/01/16 at 11:48; Status DC Metronidazole (FLAGYL 500Mmg PREMIX) 100 ml @ 100 mls/hr Q8HRS IV Last administered on 12/01/16 05:33; Start 11/29/16 at 10:00 Levofloxacin/ Dextrose 1 each 1 each PRN DAILY PRN MC SEE COMMENTS; Start at 10:00 Levofloxacin/ Dextrose (LEVAQUIN 500mg PREMIX) 100 ml @ 100 mls/hr [id number] IV Last administered on 12/01/16 05:33; Start 11/29/16 at 11:00 Fentanyl Citrate (Fentanyl 2ml Vial) 25 mcg PRN Q5MIN PRN IV MILD PAIN; Start 11/30/16 at 09:30; Stop 12/01/16 at 09:29; Status DC Fentanyl Citrate (Fentanyl 2ml Vial) 50 mcg PRN Q5MIN PRN IV MODERATE PAIN; Start 11/30/16 at 09:30; Stop 12/01/16 at 09:29; Status DC Morphine Sulfate 1 mg 1 mg PRN Q10MIN PRN IV SEVERE PAIN; Start 11/30/16 at 09: 30; Stop 12/01/16 at 09:29; Status DC Lactated Ringer's (Iv Lactated Ringers) 1,000 ml @ 0 mls/hr Q0M IV ; Start 11/30 at 09:17; Stop 11/30/16 at 21:16; Status DC Lidocaine HCl 2 ml 1X PRN PRN ID IV START; Start 11/30/16 at 09:30; Stop at 09:29; Status DC Hydromorphone HCl (Dilaudid) 0.5 mg PRN Q10MIN PRN IV SEV PAIN,Second choice; Start 11/30/16 at 09:30; Stop 12/01/16 at 09:29; Status DC Prochlorperazine Edisylate 5 mg 5 mg PACU PRN PRN IV NAUSEA; Start 11/30/16 at 09:30; Stop 12/01/16 at 09:29; Status DC Heparin Sodium (Porcine)/Sodium Chloride (Iv Sodium Chloride 0.9% 1000ml Bag) 1, 001 ml @ 1,001 mls/hr 1X PERIOP ONCE IRR ; Start 11/30/16 at 10:18; Stop at 11:17; Status DC Iohexol (Omnipaque 240 Mg/ml) 30 ml 1X ONCE PO ; Start 11/30/16 at 10:45; Stop 11/30/16 at 10:46; Status DC Iohexol (Omnipaque 300 Mg/ml) 75 ml 1X ONCE IV Last administered on 11/30/16t 10:45; Start 11/30/16 at 10:45; Stop 11/30/16 at 10:46; Status DC Info (Do NOT chart on this entry -- for MONITORING) 1 each PRN DAILY PRN MC SEE COMMENTS; Start 11/30/16 at 10:45; Stop 12/02/16 at 10:44 Iohexol (Omnipaque 240 Mg/ml) 30 ml 1X ONCE PO ; Start 11/30/16 at 11:30; Stop 11/30/16 at 11:35; Status DC Iohexol (Omnipaque 300 Mg/ml) 75 ml 1X ONCE IV ; Start 11/30/16 at 11:30; Stop 11/30/16 at 11:35; Status DC Info 1 each 1 each PRN DAILY PRN MC SEE COMMENTS; Start 11/30/16 at 11:45; Stop 12/02/16 at 11:44 Amino Acids/ Glycerin/ Electrolytes (Procalamine) 1,000 ml @ 80 mls/hr [id number] IV Last administered on 12/01/16t 11:59; Start 12/01/16 at 11:45 Active Scripts Active Reported Lexapro (Escitalopram Oxalate) 5 Mg Tablet 5 Mg PO DAILY Norvasc (Amlodipine Besylate) 10 Mg Tablet 10 Mg PO DAILY Lisinopril 40 Mg Tablet 40 Mg PO DAILY Potassium Chloride 10 Meq Capsule.er 10 Meq PO DAILY Megace (Megestrol Acetate) 400 Mg/10 Ml Oral.susp 400 Mg PO TIDAC Vitals/I & O Vital Sign - Last 24 Hours 11/30/16 11/30/16 11/30/16 11/30/16 13:40 14:42 19:00 20:00 Temp 98.7 98.4 98.5 98.7 98.4 98.5 Pulse 93 91 90 Resp 18 B/P 111/73 115/71 107/66 Pulse Ox 99 98 98 O2 Delivery Room Air Room Air Room Air Room Air 11/30/16 12/01/16 12/01/16 12/01/16 23:00 03:00 07:00 10:38 Temp 98.4 98.3 98.3 97.9 98.4 98.3 98.3 97.9 Pulse 82 97 84 83 Resp 18 B/P 125/79 112/66 118/80 111/68 Pulse Ox 98 96 97 98 O2 Delivery Room Air Room Air Room Air Room Air Intake and Output 11/30/16 11/30/16 12/01/16 15:00 23:00 07:00 Intake Total 0 ml Balance 0 ml VASIREDDI,CRISTHIAN R MD Dec 01, 2016 12:15
[2016-12-01 15:00] VITALS: BP 115/67
--- NOTE | 2016-12-01 17:28 | CONS ---
DATE OF CONSULTATION: 11/30/2016 REFERRING PHYSICIANS: Dr. Amaya, Dr. Rafaela Abreu, Dr. Blayne Freedman. Thank you the consult. CHIEF COMPLAINT: None. DIAGNOSES: Choledocholithiasis, cholelithiasis, gallstone pancreatitis. HISTORY OF PRESENT ILLNESS: This is a 61-year-old female who was noted to have decreased mental status over the past few months. She was found asleep at her home with the sink overflowing. She was transferred to [facility] ER for evaluation. Labs revealed elevated lipase and ultrasound suggested gallstones. She is transferred to [place] for further care. Given her elevated lipase, a CT scan was obtained to evaluate her pancreas. She is seen in her hospital room. She appears to be comfortable, but is a poor historian, but denies significant complaints. Her history was obtained from the chart and in discussion with her daughter on the phone. ALLERGIES: She has no known drug allergies. MEDICATIONS: Reviewed. PAST MEDICAL HISTORY: Dementia, hypertension, depression, COPD, arthritis, history of . SOCIAL HISTORY: She lives at home, but is being transitioned to a long term. FAMILY HISTORY: Noncontributory. REVIEW OF SYSTEMS: Unobtainable. PHYSICAL EXAMINATION: GENERAL: Well-developed, obese female, in no obvious distress. VITAL SIGNS: She is afebrile. Vital signs within normal limits. HEENT: Normocephalic, anicteric sclerae. Oropharynx clear. NECK: Supple. CHEST: Bilateral chest excursion. ABDOMEN: Soft, nondistended, nontender to palpation, no masses. No hernias. LABORATORY DATA: Again, her previous lipase had been elevated greater than 500, lipase is now 138, her liver function tests within normal limits. CBC: White blood cell count 7.2. A CT scan of her abdomen and pelvis demonstrates cholelithiasis, dilatation of the extrahepatic biliary tree, density in the common bile duct, concern for right side pyelonephritis and nodule in the lateral aspect of the right breast. IMPRESSION AND RECOMMENDATIONS: This is a 61-year-old female with decreased mental status, cholelithiasis, choledocholithiasis, gallstone pancreatitis, pyelonephritis and nodule in the right breast. We will ask GI to evaluate the choledocholithiasis. Ultimately, she will probably require cholecystectomy. We will defer the treatment of suspected pyelonephritis to the primary service. We would also like to go and get an ultrasound of her right breast to evaluate the mass seen on CT. I did discuss this with the patient's daughter on the phone. Thank you for allowing participation in the care of this pleasant patient. RADHA LOVE MD DR: AYAN/marvin JOB#: [id number] / [id number] ELISSA Rubi VALERIE DO THOMPSON, MICHAEL MD MTDD
--- NOTE | 2016-12-08 04:59 | DS ---
DATE OF DISCHARGE: 12/01/2016 DISCHARGE DIAGNOSES: 1. Cholelithiasis with questionable cholecystitis. 2. Dementia, baseline status with altered mental status, forgetfulness possibly due to dementia, appears to be baseline status. 3. Depression. 4. Hypertension. BRIEF HOSPITAL COURSE: A 61-year-old female patient admitted to the hospital for abdominal pain. During hospitalization, she was evaluated by Gastroenterology and Surgery teams. She has an MRCP on 12/01/2016, which showed cholelithiasis with mild dilatation of extrahepatic biliary tree as per GI. No CBD stones seen and her liver functions improved. Given her nature of the improvement of symptoms, the patient has been sent home from correction and treated medically at this time and she needs to follow up with Gastroenterology and Surgery teams for elective cholecystectomy. She is at risk for acute pancreatitis if surgery is scheduled at this time. Her symptoms improved and LFTs are improving. The patient is recommended to follow up as outpatient for mammogram in the next couple of days. DISCHARGE EXAMINATION: Please see my progress note. DISCHARGE CONDITION: Stable. PROGNOSIS: Good. FOLLOWUP: With Dr. Pulido for surgical resection of the gallbladder. DISCHARGE DISPOSITION: [facility]. DISCHARGE MEDICATIONS: Reviewed and reconciled. Please see MRAD. Total time spent for discharge is 32 minutes for patient education, counseling, and coordination of care. CRISTHIAN FRIEDMAN MD DR: SUDHIR/marvin JOB#: [id number] / [id number] HARRY
== END 2016-12-01 16:56 | DRG 444 ==
LOC: 2 NORTH 04:50 → 4 NORTH 11-30 13:17
PROVIDERS: ADMIT Internal Medicine; ATTEND Internal Medicine
DX: K80.10 Calculus of gallbladder with chronic cholecystitis without obstruction (principal); K85.10 Biliary acute pancreatitis without necrosis or infection; N12 Tubulo-interstitial nephritis, not specified as acute or chronic; E87.6 Hypokalemia; F02.80 Dementia in other diseases classified elsewhere, unspecified severity, without behavioral disturbance, psychotic disturbance, mood disturbance, and anxiety; F32.9 Major depressive disorder, single episode, unspecified; G30.9 Alzheimer's disease, unspecified; I10 Essential (primary) hypertension; J44.9 Chronic obstructive pulmonary disease, unspecified; K76.0 Fatty (change of) liver, not elsewhere classified; M19.90 Unspecified osteoarthritis, unspecified site
CPT/HCPCS: 36415; 74177; 74181; 76641; 80048; 80076; 83690; 84484; 85027; 94760; J1956; J3490; J7030; Q9967; 97116

== ENCOUNTER 2018-08-24 17:59 | Emergency (ER) | payer OTHER ==
[~2018-08-24] VITALS: Ht 160 cm; Wt 60.3 kg
[~2018-08-24 17:59] MED LIST: AMLO10TA4 PO; ESCITALOPRAM OXA5 MG PO; LISI-130 PO; MEGE400O PO; POTA10TA12 PO
--- NOTE | 2018-08-24 18:38 | PHYS DOC ---
Past Medical History Past Medical History: Anxiety, COPD, Depression, Hypertension Additional Past Medical Histor: alzheimers, PVD Past Surgical History: No Surgical History, Other Additional Past Surgical Histo: unknown Smokin Pack Per Day Alcohol Use: None Drug Use: None Adult General Chief Complaint Chief Complaint: MECHANICAL FALL HPI HPI Patient is a 63 year old female presenting to the ED via EMS due to unwitness fall from wheelchair. Pt has a history of Alzheimer disease and is minimally verbal, mostly answering yes or no, but EMS does report that this is her baseline mental status. EMS states that she was down for about 10 minutes before they arrived on the scene. Pt suffered head trauma and a hematoma is present on her forehead. Pt is unable to answer when asked if she is in any pain. Pt states that she is not on any blood thinners. Pt is unable to actively move joints but ROM is wnl upon passive movement of arms and legs. Review of Systems Review of Systems Constitutional: Denies fever or chills [] Eyes: Denies change in visual acuity, redness, or eye pain [] HENT: Denies nasal congestion or sore throat [] Respiratory: Denies cough or shortness of breath [] Cardiovascular:Denies chest pain GI: Denies abdominal pain, nausea, vomiting, bloody stools or diarrhea [] : Denies dysuria or hematuria [] Musculoskeletal: Denies back pain or joint pain [] Integument: Denies rash or skin lesions [] Neurologic: Denies headache, focal weakness or sensory changes [] Complete systems were reviewed and found to be within normal limits, except as documented in this note. Current Medications Current Medications Current Medications Medications (Trade) Dose Ordered Sig/Isabel Start Time Stop Time Status Last Admin Dose Admin Sodium Chloride 1,000 ml @ 1,000 mls/hr 1X ONCE 08/24/18 20:30 08/24/18 21:29 08/24/18 20:23 1,000 MLS/HR Allergies Allergies Allergies Coded Allergies Type Severity Reaction Last Updated Verified No Known Allergies Allergy Unknown 11/29/16 Yes Physical Exam Physical Exam Constitutional: Disheveled HENT: Normocephalic, atraumatic, bilateral external ears normal, oropharynx moist Eyes: PERRL, EOMI, conjunctiva normal, no discharge. [] Neck: Normal range of motion, no tenderness, supple, no stridor. [] Cardiovascular: Tachycardic, regular rhythm, no murmur Lungs & Thorax: Bilateral breath sounds clear to auscultation [] Abdomen: Bowel sounds normal, soft, no tenderness, no masses, Skin: Warm, dry, no erythema, no rash. [] Back: No tenderness, no CVA tenderness. [] Extremities: No tenderness, no cyanosis, no clubbing, ROM intact, no edema. [] Neurologic: Alert and oriented X 3, normal motor function, normal sensory function, no focal deficits noted. [] Psychologic: Flat affect, judgement normal, mood normal. [] Current Patient Data Vital Signs Vital Signs Date Time Temp Pulse Resp B/P (MAP) Pulse Ox O2 Delivery O2 Flow Rate FiO2 08/24/18 18:02 98.6 100 18 153/111 (125) 98 Room Air 98.6 Lab Values Laboratory Tests Test 08/24/18 19:05 08/24/18 19:30 Urine Collection Type U cath Urine Color Yellow Urine Clarity Clear Urine pH 7.0 Urine Specific [place] 1.015 Urine Protein Negative mg/dL (NEG-TRACE) Urine Glucose (UA) Negative mg/dL (NEG) Urine Ketones (Stick) Trace mg/dL (NEG) Urine Blood Negative (NEG) Urine Nitrite Negative (NEG) Urine Bilirubin Negative (NEG) Urine Urobilinogen Dipstick 1.0 mg/dL (0.2 mg/dL) Urine Leukocyte Esterase Negative (NEG) Urine RBC 0 /HPF (0-2) Urine WBC Occ /HPF (0-4) Urine Squamous Epithelial Cells Mod /LPF Urine Bacteria Few /HPF (0-FEW) White Blood Count 5.4 x10^3/uL (4.0-11.0) Red Blood Count 3.85 x10^6/uL (3.50-5.40) Hemoglobin 12.5 g/dL (12.0-15.5) Hematocrit 35.3 % (36.0-47.0) L Mean Corpuscular Volume 92 fL (79-100) Mean Corpuscular Hemoglobin 32 pg (25-35) Mean Corpuscular Hemoglobin Concent 35 g/dL (31-37) Red Cell Distribution Width 13.7 % (11.5-14.5) Platelet Count 196 x10^3/uL (140-400) Neutrophils (%) (Auto) 59 % (31-73) Lymphocytes (%) (Auto) 29 % (24-48) Monocytes (%) (Auto) 12 % (0-9) H Eosinophils (%) (Auto) 0 % (0-3) Basophils (%) (Auto) 0 % (0-3) Neutrophils # (Auto) 3.2 x10^3uL (1.8-7.7) Lymphocytes # (Auto) 1.6 x10^3/uL (1.0-4.8) Monocytes # (Auto) 0.6 x10^3/uL (0.0-1.1) Eosinophils # (Auto) 0.0 x10^3/uL (0.0-0.7) Basophils # (Auto) 0.0 x10^3/uL (0.0-0.2) Sodium Level 133 mmol/L (136-145) L Potassium Level 4.4 mmol/L (3.5-5.1) Chloride Level 97 mmol/L (98-107) L Carbon Dioxide Level 27 mmol/L (21-32) Anion Gap 9 (6-14) Blood Urea Nitrogen 14 mg/dL (7-20) Creatinine 0.5 mg/dL (0.6-1.0) L Estimated GFR (Cockcroft-Gault) 150.8 BUN/Creatinine Ratio 28 (6-20) H Glucose Level 98 mg/dL (70-99) Lactic Acid Level 0.7 mmol/L (0.4-2.0) Calcium Level 9.8 mg/dL (8.5-10.1) Magnesium Level 1.7 mg/dL (1.8-2.4) L Total Bilirubin 0.2 mg/dL (0.2-1.0) Aspartate Amino Transferase (AST) 9 U/L (15-37) L Alanine Aminotransferase (ALT) 12 U/L (14-59) L Alkaline Phosphatase 69 U/L (46-116) Creatine Kinase 27 U/L (26-192) Creatine Kinase MB (Mass) < 0.5 ng/mL (0.0-3.6) Creatine Kinase MB Relative Index % (0-4) Troponin I Quantitative < 0.017 ng/mL (0.000-0.055) Total Protein 6.8 g/dL (6.4-8.2) Albumin 3.1 g/dL (3.4-5.0) L Albumin/Globulin Ratio 0.8 (1.0-1.7) L Laboratory Tests 08/24/18 19:30 Laboratory Tests 08/24/18 19:30 EKG EKG @1914: sinus tachycardia, baseline artifact, no ST elevations. Radiology/Procedures Radiology/Procedures PROCEDURE: CT HEAD AND CERVICAL SPINE WO Examination: CT HEAD AND CERVICAL SPINE WO History: fall from w/c hematoma l forhead no prev Comparison/Correlation: 03/03/2018 CT head without contrast Findings: Axial images of the head and cervical spine were obtained without contrast. Sagittal and coronal reformatted images of the cervical spine were provided. Evaluation of the cervical spine may be limited due to patient positioning. Atrophy and chronic ischemic changes white matter are present. [place] radiata infarcts are present. Left supraorbital forehead hematoma is present within subcutaneous fat measuring 3.2 cm transverse by 0.8 cm anteroposteriorly. Subgaleal hematoma is also present in this region. No depressed fracture. Hyperostosis from talus is present. Mucosal thickening of the ethmoid air cells noted. Small left maxillary sinus mucous retention cyst is present. Mild atlantoaxial joint degenerative remodeling is present. Vertebral body heights and disc spaces are adequate. Alignment is normal. Dextroconvexity of the cervical spine is mild. Impression: No intracranial hemorrhage. Left for head subgaleal hematoma and subcutaneous hematoma. Normal alignment of the cervical spine. No fracture or significant degenerative change. Electronically signed by: Peterson Talley MD (08/24/2018 7:15 PM) [facility] PROCEDURE: PORTABLE CHEST 1V Examination: PORTABLE CHEST 1V History: Trauma, fall, pain Comparison/Correlation: None Findings: Semiupright frontal view chest was obtained. Heart size and pulmonary vasculature are normal. No infiltrate or pneumothorax. Bony structures are unremarkable. Impression: No active disease. No displaced fracture. Consider further evaluation if fracture is a persistent concern. Electronically signed by: Peterson Talley MD (08/24/2018 6:50 PM) [facility] PROCEDURE: PELVIS Examination: PELVIS History: Trauma, fall, pain Comparison/Correlation: 11/30/2016 CT abdomen and pelvis with oral contrast Findings: Frontal view pelvis was obtained. Hip joints are symmetric. No acute fracture or bone destruction. Degenerative changes of the low lumbar spine are present. Soft tissues are unremarkable. Stool in the colon is noted. Impression: No fracture. Consider further evaluation if occult fracture is a persistent concern. Electronically signed by: Peterson Talley MD (08/24/2018 7:16 PM) [facility] Course & Med Decision Making Course & Med Decision Making 63 yo female presents via EMS due to fall. Head trauma involved, significant for hematoma on forehead. Dragon Disclaimer Dragon Disclaimer This electronic medical record was generated, in whole or in part, using a voice recognition dictation system. Departure Departure Impression: Primary Impression: Subgaleal hemorrhage Additional Impression: Blunt head trauma Disposition: 03 TRANSFER SNF (back to [facility]) Condition: STABLE Referrals: GIOVANY TATE DO (PCP) Patient Instructions: Facial or Scalp Contusion, [id number] Additional Instructions: Can ice area 20 min on and then off for 20 min for next few days to minimize swelling. Problem Qualifiers Additional Impression: Blunt head trauma Encounter type: initial encounter Qualified Codes: S09.8XXA - Other specified injuries of head, initial encounter SARKIS DO DO Aug 24, 2018 18:38
--- NOTE | 2018-08-24 18:53 | RAD ---
Examination: PORTABLE CHEST 1V History: Trauma, fall, pain Comparison/Correlation: None Findings: Semiupright frontal view chest was obtained. Heart size and pulmonary vasculature are normal. No infiltrate or pneumothorax. Bony structures are unremarkable. Impression: No active disease. No displaced fracture. Consider further evaluation if fracture is a persistent concern. Electronically signed by: Peterson Talley MD (08/24/2018 6:50 PM) [facility]
--- NOTE | 2018-08-24 19:18 | RAD ---
Examination: CT HEAD AND CERVICAL SPINE WO History: fall from w/c hematoma l forhead no prev Comparison/Correlation: 03/03/2018 CT head without contrast Findings: Axial images of the head and cervical spine were obtained without contrast. Sagittal and coronal reformatted images of the cervical spine were provided. Evaluation of the cervical spine may be limited due to patient positioning. Atrophy and chronic ischemic changes white matter are present. [place] radiata infarcts are present. Left supraorbital forehead hematoma is present within subcutaneous fat measuring 3.2 cm transverse by 0.8 cm anteroposteriorly. Subgaleal hematoma is also present in this region. No depressed fracture. Hyperostosis from talus is present. Mucosal thickening of the ethmoid air cells noted. Small left maxillary sinus mucous retention cyst is present. Mild atlantoaxial joint degenerative remodeling is present. Vertebral body heights and disc spaces are adequate. Alignment is normal. Dextroconvexity of the cervical spine is mild. Impression: No intracranial hemorrhage. Left for head subgaleal hematoma and subcutaneous hematoma. Normal alignment of the cervical spine. No fracture or significant degenerative change. Electronically signed by: Peterson Talley MD (08/24/2018 7:15 PM) [facility]
--- NOTE | 2018-08-24 19:19 | RAD ---
Examination: PELVIS History: Trauma, fall, pain Comparison/Correlation: 11/30/2016 CT abdomen and pelvis with oral contrast Findings: Frontal view pelvis was obtained. Hip joints are symmetric. No acute fracture or bone destruction. Degenerative changes of the low lumbar spine are present. Soft tissues are unremarkable. Stool in the colon is noted. Impression: No fracture. Consider further evaluation if occult fracture is a persistent concern. Electronically signed by: Peterson Talley MD (08/24/2018 7:16 PM) [facility]
[2018-08-24 19:22] LABS: BILIRUBIN,URINE NEGATIVE (NEG); CLARITY,URINE CLEAR; COLOR,URINE YELLOW; NITRITE,URINE NEGATIVE (NEG); PROTEIN,URINE NEGATIVE (NEG-TRACE)
[2018-08-24 19:42] LABS: BACTERIA,URINE FEW /HPF (0-FEW); RBC,URINE 0 /HPF (0-2); SQUAMOUS EPITHELIAL CELL,UR MOD /LPF; WBC,URINE OCC /HPF (0-4)
[2018-08-24 19:46] LABS: BASO % 0 % (0-3); EOS % 0 % (0-3); HEMATOCRIT 35.3 % (36.0-47.0); HEMOGLOBIN 12.5 g/dL (12.0-15.5); LYMPH # 1.6 x10^3/uL (1.0-4.8); LYMPH % 29 % (24-48); MEAN CORPUSCULAR HEMOGLOBIN 32 pg (25-35); MEAN CORPUSCULAR HGB CONC 35 g/dL (31-37); MEAN CORPUSCULAR VOLUME 92 fL (79-100); MONO # 0.6 x10^3/uL (0.0-1.1); MONO % 12 % (0-9); NEUT # 3.2 x10^3uL (1.8-7.7); NEUT % 59 % (31-73); PLATELET COUNT 196 x10^3/uL (140-400); RED BLOOD COUNT 3.85 x10^6/uL (3.50-5.40); RED CELL DISTRIBUTION WIDTH 13.7 % (11.5-14.5); WHITE BLOOD COUNT 5.4 x10^3/uL (4.0-11.0)
[2018-08-24 19:59] LABS: CALCIUM 9.8 mg/dL (8.5-10.1); CREATININE 0.5 mg/dL (0.6-1.0); GFR 150.8; POTASSIUM 4.4 mmol/L (3.5-5.1)
[2018-08-24 20:12] LABS: ALBUMIN 3.1 g/dL (3.4-5.0); ALBUMIN/GLOBULIN RATIO 0.8 (1.0-1.7); MAGNESIUM 1.7 mg/dL (1.8-2.4); TOTAL BILIRUBIN 0.2 mg/dL (0.2-1.0); TOTAL PROTEIN 6.8 g/dL (6.4-8.2)
[2018-08-24 20:15] LABS: CREATINE KINASE 27 U/L (26-192)
[2018-08-24] MEDS ORDERED: IV NORMAL SALINE 1000ML BAG 1,000 ML IV ONE (20:30)
[2018-08-24 21:23] VITALS: BP 128/87
--- NOTE | 2018-08-25 03:04 | EKG ---
[facility] [address] [place] [address] Test Date: 2018-08-24 Test Time: 18:58:18 Pat Name: KEVIN HUDSON Department: Room: Gender: F Trim Carpenter: : 1955 Requested By: SARKIS DO Order Number: [id number] Reading MD: Measurements Intervals [place] Rate: 102 P: 30 IA: 182 QRS: 1 QRSD: 78 T: 36 QT: 336 QTc: 442 Interpretive Statements SINUS TACHYCARDIA OTHERWISE NORMAL ECG RI6.01 No previous ECG available for comparison
== END 2018-08-24 21:35 ==
LOC: ER 17:59
DX: P12.2 Epicranial subaponeurotic hemorrhage due to birth injury (principal); G30.9 Alzheimer's disease, unspecified; F02.80 Dementia in other diseases classified elsewhere, unspecified severity, without behavioral disturbance, psychotic disturbance, mood disturbance, and anxiety; J44.9 Chronic obstructive pulmonary disease, unspecified; I10 Essential (primary) hypertension; F41.9 Anxiety disorder, unspecified; F32.9 Major depressive disorder, single episode, unspecified; I73.9 Peripheral vascular disease, unspecified; F17.200 Nicotine dependence, unspecified, uncomplicated; W05.0XXA Fall from non-moving wheelchair, initial encounter; Y93.89 Activity, other specified; Y92.89 Other specified places as the place of occurrence of the external cause; Y99.8 Other external cause status
CPT/HCPCS: 36415; 51701; 70450; 71045; 72125; 72170; 80053; 81001; 82553; 83605; 83735; 84484; 85025; 93005; 99285; J7030

== ENCOUNTER 2018-12-24 07:49 | Inpatient (IN) | payer OTHER ==
[~2018-12-24] VITALS: Ht 162.6 cm; Wt 58.5 kg
[2018-12-24] MEDS ORDERED: IPRATRPIUM/ALBUTEROL 0.5/2.5MG 3 ML NEBU. NEB ONE (08:00)
[2018-12-24] MEDS ORDERED: IPRATRPIUM/ALBUTEROL 0.5/2.5MG 3 ML NEBU. ONE (08:03)
[2018-12-24 08:17] LABS: BASE EXCESS COOX 1 mmol/L (-3-3); HCO3 COOX 25 mmol/L (21-28); METHEMOGLOBIN 0.4 % (0.0-1.9); PCO2 COOX 39 mmHg (35-46); PO2 COOX 124 mmHg (65-108); SAT O2 COOX 98 % (92-99)
[2018-12-24 08:28] LABS: BASO % 1 % (0-3); EOS % 1 % (0-3); HEMATOCRIT 37.8 % (36.0-47.0); HEMOGLOBIN 12.8 g/dL (12.0-15.5); LYMPH # 1.4 x10^3/uL (1.0-4.8); LYMPH % 35 % (24-48); MEAN CORPUSCULAR HEMOGLOBIN 32 pg (25-35); MEAN CORPUSCULAR HGB CONC 34 g/dL (31-37); MEAN CORPUSCULAR VOLUME 93 fL (79-100); MONO # 0.4 x10^3/uL (0.0-1.1); MONO % 11 % (0-9); NEUT # 2.1 x10^3uL (1.8-7.7); NEUT % 53 % (31-73); PLATELET COUNT 231 x10^3/uL (140-400); RED BLOOD COUNT 4.06 x10^6/uL (3.50-5.40); RED CELL DISTRIBUTION WIDTH 13.8 % (11.5-14.5)
--- NOTE | 2018-12-24 08:57 | RAD ---
EXAM: Chest, single view. HISTORY: Common monoxide poisoning COMPARISON: 08/24/2018 FINDINGS: A frontal view of the chest is obtained. There is no infiltrate, pleural effusion or pneumothorax. There is stable mild interstitial prominence likely due to relative decreased lung volumes. There is a stable cardiac silhouette. IMPRESSION: No acute pulmonary finding. Electronically signed by: Rosemary Tracy MD (12/24/2018 8:54 AM) [place] [id number]
--- NOTE | 2018-12-24 09:17 | PHYS DOC ---
Past Medical History Past Medical History: Anxiety, COPD, Depression, Hypertension Additional Past Medical Histor: alzheimers, PVD Past Surgical History: No Surgical History, Other Additional Past Surgical Histo: unknown Alcohol Use: None Drug Use: None Adult General Chief Complaint Chief Complaint: carbon dioxide exposure, altered level of consciousness HPI HPI Patient is a 63 year old female resident of prison who brought in by EMS because of CO exposure and lethargic. [facility] staff reported that they had carbon monoxide leakage and moved all of their 68 resident to a local cheondoism and send several of them to different hospitals because of carbon monoxide exposure including this patient with reported lethargic and exposure to carbon monoxide. EMS reported that patient had of carbon monoxide of 10 that improved to 7 or 8 with starting oxygen and became more awake and alert. Patient was not able to talk. Patient is able to tell us her name only and does not answer other questions or following commands that according to EMR this is her baseline condition. Review of Systems Review of Systems Unable to obtain Current Medications Current Medications Current Medications Medications (Trade) Dose Ordered Sig/Isabel Start Time Stop Time Status Last Admin Dose Admin Albuterol/ Ipratropium (Duoneb) 3 ml STK-MED ONCE 12/24/18 08:03 12/24/18 08:05 DC Allergies Allergies Allergies Coded Allergies Type Severity Reaction Last Updated Verified No Known Allergies Allergy Unknown 11/29/16 Yes Physical Exam Physical Exam Constitutional: Well nourished, mild distress, non-toxic appearance. [] HENT: Normocephalic, atraumatic. Eyes: PERRLA, EOMI, conjunctiva normal, no discharge. [] Neck: Normal range of motion, no tenderness, supple, no stridor. [] Cardiovascular:Heart rate regular rhythm, no murmur [] Lungs & Thorax: Bilateral breath sounds clear to auscultation [] Abdomen: Bowel sounds normal, soft, no tenderness, no masses, no pulsatile masses. [] Skin: Warm, dry, no erythema, no rash. [] Back: No tenderness, no CVA tenderness. [] Extremities: No tenderness, no cyanosis, no clubbing, ROM intact, no edema. [] Neurologic: Alert, moves extremities, her exam because of patient condition Psychologic: Unable to evaluate Current Patient Data Vital Signs Vital Signs Date Time Temp Pulse Resp B/P (MAP) Pulse Ox O2 Delivery O2 Flow Rate FiO2 12/24/18 08:45 106 11 100 12/24/18 08:15 Nasal Cannula 12/24/18 07:49 98.8 132/88 (103) 15.0 98.8 Lab Values Laboratory Tests Test 12/24/18 07:57 12/24/18 08:17 O2 Saturation 98 % (92-99) Arterial Blood pH 7.44 (7.35-7.45) Arterial Blood pCO2 at Patient Temp 39 mmHg (35-46) Arterial Blood pO2 at Patient Temp 124 mmHg (65-108) H Arterial Blood HCO3 25 mmol/L (21-28) Arterial Blood Base Excess 1 mmol/L (-3-3) Oxyhemoglobin 95.0 % Methemoglobin 0.4 % (0.0-1.9) Carbon Monoxide, Quantitative 2.6 % (0.0-1.9) H FiO2 32 White Blood Count 4.0 x10^3/uL (4.0-11.0) Red Blood Count 4.06 x10^6/uL (3.50-5.40) Hemoglobin 12.8 g/dL (12.0-15.5) Hematocrit 37.8 % (36.0-47.0) Mean Corpuscular Volume 93 fL (79-100) Mean Corpuscular Hemoglobin 32 pg (25-35) Mean Corpuscular Hemoglobin Concent 34 g/dL (31-37) Red Cell Distribution Width 13.8 % (11.5-14.5) Platelet Count 231 x10^3/uL (140-400) Neutrophils (%) (Auto) 53 % (31-73) Lymphocytes (%) (Auto) 35 % (24-48) Monocytes (%) (Auto) 11 % (0-9) H Eosinophils (%) (Auto) 1 % (0-3) Basophils (%) (Auto) 1 % (0-3) Neutrophils # (Auto) 2.1 x10^3uL (1.8-7.7) Lymphocytes # (Auto) 1.4 x10^3/uL (1.0-4.8) Monocytes # (Auto) 0.4 x10^3/uL (0.0-1.1) Eosinophils # (Auto) 0.0 x10^3/uL (0.0-0.7) Basophils # (Auto) 0.0 x10^3/uL (0.0-0.2) Laboratory Tests 12/24/18 08:17 EKG EKG Dictated by me. EKG at 0758 showed normal sinus rhythm at rate of 93, normal PA and QT intervals, no acute ST and T-wave abnormalities. Radiology/Procedures Radiology/Procedures [facility] [address] [place] [address] IMAGING REPORT Signed PATIENT: KEVIN HUDSON ACCOUNT: [id number] : 1955 LOCATION: ER AGE: 63 SEX: F EXAM STATUS: REG ER ORD. PHYSICIAN: PARESH MITCHELL MD REASON: CARBON MONOXIDE POISONING, ALTERED MENTAL STATUS PROCEDURE: PORTABLE CHEST 1V EXAM: Chest, single view. HISTORY: Common monoxide poisoning COMPARISON: 08/24/2018 FINDINGS: A frontal view of the chest is obtained. There is no infiltrate, pleural effusion or pneumothorax. There is stable mild interstitial prominence likely due to relative decreased lung volumes. There is a stable cardiac silhouette. IMPRESSION: No acute pulmonary finding. Electronically signed by: Rosemary Vidal MD (12/24/2018 8:54 AM) [facility] DICTATED and SIGNED BY: ROSEMARY VIDAL MD DATE: 12/24/18 0852 Course & Med Decision Making Course & Med Decision Making Pertinent Labs and Imaging studies reviewed. (See chart for details) Evaluation of patient in ER showed 62-year-old female patient brought in for exposure to carbon monoxide. Patient had ABG with CO of 2.6. Patient was lethargic and according to EMR it is her baseline condition. Plan to admit patient for social admission related to evacuated her current prison. Dragon Disclaimer Dragon Disclaimer This electronic medical record was generated, in whole or in part, using a voice recognition dictation system. Departure Departure Impression: Primary Impression: Generalized weakness Additional Impressions: Carbon monoxide exposure Dementia Disposition: ADMITTED INPATIENT (at 0 921) Admitting Physician: Other (Dr Olivas accepted admission at 0920) Condition: IMPROVED Referrals: MASSIEL MURPHY MD (PCP) Problem Qualifiers Additional Impressions: Dementia Dementia type: Alzheimer's disease Alzheimer's disease onset: unspecified onset Dementia behavioral disturbance: without behavioral disturbance Qualified Codes: G30.9 - Alzheimer's disease, unspecified; F02.80 - Dementia in other diseases classified elsewhere without behavioral disturbance PARESH MITCHELL MD Dec 24, 2018 09:17
--- NOTE | 2018-12-24 09:26 | PDOC1 ---
History and Physical Date of Admission Date of Admission DATE: 12/24/18 TIME: 09:24 Identification/Chief Complaint Chief Complaint Carbon Monoxide exposure, AMS Source Source: Caregiver, Chart review History of Present Illness History of Present Illness 61 y/o AA female w/ PMHx dementia, depression, HTN, COPD, OA who presents from SNF in [place] after carbon monoxide leak, apparently her CO level was > 10 with EMS. 2.6 on ABG just after call for admission. She has not been speaking to medical staff at all. Per SNF she normally is verbal. She is alone in her room this afternoon. Per RN has not complained of anything. She does not verbally respond to me, simply stares, is obviously suspect historian at baseline. Note made of apparent unintentional weight loss per chart and prior GB disease. She does not follow all commands, but does follow some. Unknown if she is hearing impaired. Past Medical History Cardiovascular: HTN Pulmonary: COPD CENTRAL NERVOUS SYSTEM: Dementia GI: No pertinent hx Heme/Onc: No pertinent hx Hepatobiliary: No pertinent hx Psych: No pertinent hx Rheumatologic: No pertinent hx Infectious disease: No pertinent hx ENT: No pertinent hx Renal/: No pertinent hx Endocrine: No pertinent hx Dermatology: No pertinent hx Past Surgical History Past Surgical History: No pertinent history Family History Family History: Alzheimer's Disease Social History Smoke: No ALCOHOL: none Drugs: None Current Medications Current Medications Current Medications Albuterol/ Ipratropium (Duoneb) 3 ml 1X ONCE NEB Last administered on at 08:28; Start 12/24/18 at 08:00; Stop 12/24/18 at 08:03; Status DC Albuterol/ Ipratropium (Duoneb) 3 ml STK-MED ONCE .ROUTE ; Start 12/24/18 at 08: 03; Stop 12/24/18 at 08:05; Status DC Active Scripts Active Reported Lexapro (Escitalopram Oxalate) 5 Mg Tablet 5 Mg PO DAILY Norvasc (Amlodipine Besylate) 10 Mg Tablet 10 Mg PO DAILY Lisinopril 40 Mg Tablet 40 Mg PO DAILY Potassium Chloride 10 Meq Capsule.er 10 Meq PO DAILY Megace (Megestrol Acetate) 400 Mg/10 Ml Oral.susp 400 Mg PO TIDAC Allergies Allergies: Coded Allergies: No Known Allergies (Verified Allergy, Unknown, 2/7/17) ROS Review of System Unable to obtain due to confusion and non-verbal status Physical Exam General: Cooperative, No acute distress, Other (Drowsy, not verbal) HEENT: Atraumatic, PERRLA, EOMI, Mucous membr. moist/pink Lungs: Other (Bilateral wheezes) Heart: S1S2, RRR, no gallops, no murmurs Abdomen: Normal bowel sounds, Soft, No tenderness, No hepatosplenomegaly, No masses Rectal Exam: not examined Extremities: No clubbing, No cyanosis, No edema, Normal pulses, No tenderness/ swelling Skin: No rashes, No breakdown, No significant lesion Neuro: Normal tone, Sensation intact, Cranial nerves 3-12 NL, Reflexes 2+, Other (Moving limbs spontaneously) Vitals Vitals Vital Signs Date Time Temp Pulse Resp B/P (MAP) Pulse Ox O2 Delivery O2 Flow Rate FiO2 12/24/18 08:15 100 Nasal Cannula 12/24/18 07:49 98.8 97 20 132/88 (103) 15.0 98.8 Labs Labs Laboratory Tests Test 12/24/18 07:57 12/24/18 08:17 O2 Saturation 98 % (92-99) Arterial Blood pH 7.44 (7.35-7.45) Arterial Blood pCO2 at Patient Temp 39 mmHg (35-46) Arterial Blood pO2 at Patient Temp 124 mmHg (65-108) Arterial Blood HCO3 25 mmol/L (21-28) Arterial Blood Base Excess 1 mmol/L (-3-3) Oxyhemoglobin 95.0 % Methemoglobin 0.4 % (0.0-1.9) Carbon Monoxide, Quantitative 2.6 % (0.0-1.9) FiO2 32 White Blood Count 4.0 x10^3/uL (4.0-11.0) Red Blood Count 4.06 x10^6/uL (3.50-5.40) Hemoglobin 12.8 g/dL (12.0-15.5) Hematocrit 37.8 % (36.0-47.0) Mean Corpuscular Volume 93 fL (79-100) Mean Corpuscular Hemoglobin 32 pg (25-35) Mean Corpuscular Hemoglobin Concent 34 g/dL (31-37) Red Cell Distribution Width 13.8 % (11.5-14.5) Platelet Count 231 x10^3/uL (140-400) Neutrophils (%) (Auto) 53 % (31-73) Lymphocytes (%) (Auto) 35 % (24-48) Monocytes (%) (Auto) 11 % (0-9) Eosinophils (%) (Auto) 1 % (0-3) Basophils (%) (Auto) 1 % (0-3) Neutrophils # (Auto) 2.1 x10^3uL (1.8-7.7) Lymphocytes # (Auto) 1.4 x10^3/uL (1.0-4.8) Monocytes # (Auto) 0.4 x10^3/uL (0.0-1.1) Eosinophils # (Auto) 0.0 x10^3/uL (0.0-0.7) Basophils # (Auto) 0.0 x10^3/uL (0.0-0.2) Laboratory Tests Test 12/24/18 07:57 12/24/18 08:17 O2 Saturation 98 % (92-99) Arterial Blood pH 7.44 (7.35-7.45) Arterial Blood pCO2 at Patient Temp 39 mmHg (35-46) Arterial Blood pO2 at Patient Temp 124 mmHg (65-108) Arterial Blood HCO3 25 mmol/L (21-28) Arterial Blood Base Excess 1 mmol/L (-3-3) Oxyhemoglobin 95.0 % Methemoglobin 0.4 % (0.0-1.9) Carbon Monoxide, Quantitative 2.6 % (0.0-1.9) FiO2 32 White Blood Count 4.0 x10^3/uL (4.0-11.0) Red Blood Count 4.06 x10^6/uL (3.50-5.40) Hemoglobin 12.8 g/dL (12.0-15.5) Hematocrit 37.8 % (36.0-47.0) Mean Corpuscular Volume 93 fL (79-100) Mean Corpuscular Hemoglobin 32 pg (25-35) Mean Corpuscular Hemoglobin Concent 34 g/dL (31-37) Red Cell Distribution Width 13.8 % (11.5-14.5) Platelet Count 231 x10^3/uL (140-400) Neutrophils (%) (Auto) 53 % (31-73) Lymphocytes (%) (Auto) 35 % (24-48) Monocytes (%) (Auto) 11 % (0-9) Eosinophils (%) (Auto) 1 % (0-3) Basophils (%) (Auto) 1 % (0-3) Neutrophils # (Auto) 2.1 x10^3uL (1.8-7.7) Lymphocytes # (Auto) 1.4 x10^3/uL (1.0-4.8) Monocytes # (Auto) 0.4 x10^3/uL (0.0-1.1) Eosinophils # (Auto) 0.0 x10^3/uL (0.0-0.7) Basophils # (Auto) 0.0 x10^3/uL (0.0-0.2) Images Images CXR - No acute pulmonary finding. VTE Prophylaxis Ordered VTE Prophylaxis Devices: Yes VTE Pharmacological Prophylaxi: Yes Assessment/Plan Assessment/Plan A/P: Acute encephalopathy - Possibly 2/2 CO exposure, will continue on O2 15 total hours for CO levels that were initially elevated CO exposure - as above Dementia - light during day, redirection, risperidal for agitation Depression - cont home meds HTN - cont home meds COPD - will add nebs OA - tylenol prn pain FEN - General diet, GI soft PPX - Heparin CODE - FULL? Inpatient for CO toxicity, encephalopathy likely 2/2 this on top of her underlying dementia, will likely be able to d/c back to her SNF in the morning KO MCKEON MD Dec 24, 2018 09:26
[2018-12-24 09:40] LABS: ALBUMIN/GLOBULIN RATIO 0.8 (1.0-1.7); CALCIUM 9.9 mg/dL (8.5-10.1); CREATININE 0.5 mg/dL (0.6-1.0); GFR 150.8; POTASSIUM 4.3 mmol/L (3.5-5.1); TOTAL BILIRUBIN 0.3 mg/dL (0.2-1.0); TOTAL PROTEIN 6.6 g/dL (6.4-8.2)
[2018-12-24 09:50] LABS: CREATINE KINASE 12 U/L (26-192)
[2018-12-24] MEDS ORDERED: DIVA125C3 PO (11:59)
[2018-12-24] MEDS ORDERED: DOCU100T PO (11:59)
[2018-12-24] MEDS ORDERED: RISP2TAB3 PO (11:59)
[2018-12-24] MEDS ORDERED: HYOS0.1279 PO (11:59)
[2018-12-24] MEDS ORDERED: ACETAMINOPHEN 325 MG TABLET. PO PRN (12:45)
[2018-12-24] MEDS ORDERED: ONDANSETRON PF 4 MG/2 ML VIAL. IV PRN (12:45)
[2018-12-24] MEDS: LISINOPRIL 20 MG TABLET PO SCH (13:00)
[2018-12-24] MEDS: HYOSCYAMINE 0.125 MG TAB.RAPDIS PO SCH ×2 (13:00→20:05)
[2018-12-24] MEDS: CITALOPRAM 10 MG TABLET. PO SCH (13:00)
[2018-12-24] MEDS: DOCUSATE SODIUM 100 MG CAPSULE. PO SCH ×2 (13:00→20:04)
[2018-12-24] MEDS: POTASSIUM CHLORIDE 10 MEQ TABLET.ER. PO SCH (13:00)
[2018-12-24] MEDS: SENNOSIDES/DOCUSATE 8.6/50MG TABLET. PO SCH ×2 (13:00→20:04)
[2018-12-24] MEDS: DIVALPROEX SPRINKLES 125 MG CAPSULE. PO SCH ×2 (14:43→20:05)
[2018-12-24] MEDS: HEPARIN for SUB-Q USE 5,000 UNIT/ML VIAL. SQ SCH ×2 (14:54→20:07)
[2018-12-24 15:00] VITALS: BP 134/87
--- NOTE | 2018-12-24 15:27 | NUR ---
SW following pt for anticipated dc needs. VLADIMIR confirmed with Sharon at [facility] pt is LTC resident and plan of return upon dc. Will continue to follow.
--- NOTE | 2018-12-24 16:09 | EKG ---
[facility] [address] [place] [address] Test Date: 2018-12-24 Test Time: 07:58:21 Pat Name: KEVIN HUDSON Department: Room: 512 1 Gender: F Education Research Analyst: : 1955 Requested By: PARESH MITCHELL Order Number: [id number] Reading MD: Oneil Shay MD Measurements Intervals [place] Rate: 93 P: 6 NM: 198 QRS: 4 QRSD: 68 T: 15 QT: 326 QTc: 408 Interpretive Statements SINUS RHYTHM Electronically Signed On 12-25-2018 7:02:12 BULB GROWER by Oneil Shay MD
[2018-12-24] MEDS: IPRATRPIUM/ALBUTEROL 0.5/2.5MG 3 ML NEBU. NEB SCH (16:25)
[2018-12-24] MEDS: MEGESTROL 400 MG/10 ML ORAL.SUSP. PO SCH (18:33)
[2018-12-24 19:00] VITALS: BP 125/85
[2018-12-24] MEDS: risperiDONE 1 MG TABLET. PO SCH (20:04)
[2018-12-24 23:00] VITALS: BP 103/65
[2018-12-25 03:00] VITALS: BP 105/68
[2018-12-25] MEDS: HEPARIN for SUB-Q USE 5,000 UNIT/ML VIAL. SQ SCH ×3 (06:00→20:45)
[2018-12-25 07:15] VITALS: BP 108/69
[2018-12-25] MEDS: IPRATRPIUM/ALBUTEROL 0.5/2.5MG 3 ML NEBU. NEB SCH ×5 (07:19→19:55)
[2018-12-25 07:30] LABS: BASO % 1 % (0-3); EOS % 1 % (0-3); HEMATOCRIT 36.7 % (36.0-47.0); LYMPH # 1.7 x10^3/uL (1.0-4.8); LYMPH % 41 % (24-48); MEAN CORPUSCULAR HEMOGLOBIN 31 pg (25-35); MEAN CORPUSCULAR HGB CONC 33 g/dL (31-37); MEAN CORPUSCULAR VOLUME 95 fL (79-100); MONO # 0.4 x10^3/uL (0.0-1.1); MONO % 11 % (0-9); NEUT # 1.9 x10^3uL (1.8-7.7); NEUT % 46 % (31-73); PLATELET COUNT 145 x10^3/uL (140-400); RED BLOOD COUNT 3.85 x10^6/uL (3.50-5.40); RED CELL DISTRIBUTION WIDTH 13.7 % (11.5-14.5)
[2018-12-25 07:35] LABS: CALCIUM 10.1 mg/dL (8.5-10.1); CREATININE 0.4 mg/dL (0.6-1.0); GFR 195.1; POTASSIUM 4.5 mmol/L (3.5-5.1)
--- NOTE | 2018-12-25 08:43 | PDOC ---
PROGRESS NOTES Chief Complaint Chief Complaint A/P: Acute encephalopathy - Possibly 2/2 CO exposure, will continue on O2 15 total hours for CO levels that were initially elevated CO exposure - as above Dementia - light during day, redirection, risperidal for agitation Depression - cont home meds HTN - cont home meds COPD - will add nebs OA - tylenol prn pain FEN - General diet, GI soft PPX - Heparin CODE - FULL? Inpatient for CO toxicity, encephalopathy likely 2/2 this on top of her underlying dementia, will likely be able to d/c back to her SNF in the morning History of Present Illness History of Present Illness 61 y/o AA female w/ PMHx dementia, depression, HTN, COPD, OA who presents from SNF in [place] after carbon monoxide leak, apparently her CO level was > 10 with EMS. 2.6 on ABG just after call for admission. She has not been speaking to medical staff at all. Per SNF she normally is verbal. She is alone in her room this afternoon. Per RN has not complained of anything. She does not verbally respond to me, simply stares, is obviously suspect historian at baseline. Note made of apparent unintentional weight loss per chart and prior GB disease. She does not follow all commands, but does follow some. Unknown if she is hearing impaired. She was notably choking on her thin liquid diet. I have asked [facility] to evaluate as she is not in condition to return to SNF if she is aspirating. Can d/c O2 Vitals Vitals Vital Signs Date Time Temp Pulse Resp B/P (MAP) Pulse Ox O2 Delivery O2 Flow Rate FiO2 12/25/18 07:15 97.8 74 18 108/69 (82) 95 Nasal Cannula 1.0 97.8 Physical Exam General: Cooperative, No acute distress, Other (Drowsy, not verbal) Lungs: Clear, Wheezing Abdomen: Normal bowel sounds, Soft, No tenderness, No hepatosplenomegaly, No masses Extremities: No clubbing, No cyanosis, No edema, Normal pulses, No tenderness/ swelling Skin: No rashes, No breakdown, No significant lesion Labs LABS Laboratory Tests Test 12/24/18 09:15 12/25/18 07:00 Sodium Level 136 mmol/L (136-145) 137 mmol/L (136-145) Potassium Level 4.3 mmol/L (3.5-5.1) 4.5 mmol/L (3.5-5.1) Chloride Level 100 mmol/L (98-107) 101 mmol/L (98-107) Carbon Dioxide Level 28 mmol/L (21-32) 26 mmol/L (21-32) Anion Gap 8 (6-14) 10 (6-14) Blood Urea Nitrogen 11 mg/dL (7-20) 9 mg/dL (7-20) Creatinine 0.5 mg/dL (0.6-1.0) 0.4 mg/dL (0.6-1.0) Estimated GFR (Cockcroft-Gault) 150.8 195.1 BUN/Creatinine Ratio 22 (6-20) Glucose Level 103 mg/dL (70-99) 90 mg/dL (70-99) Calcium Level 9.9 mg/dL (8.5-10.1) 10.1 mg/dL (8.5-10.1) Total Bilirubin 0.3 mg/dL (0.2-1.0) Aspartate Amino Transf (AST/SGOT) 7 U/L (15-37) Alanine Aminotransferase (ALT/SGPT) 10 U/L (14-59) Alkaline Phosphatase 77 U/L (46-116) Creatine Kinase 12 U/L (26-192) Creatine Kinase MB (Mass) < 0.5 ng/mL (0.0-3.6) Creatine Kinase MB Relative Index % (0-4) Troponin I Quantitative < 0.017 ng/mL (0.000-0.055) FV-Pje-S-Type Natriuretic Peptide 61 pg/mL (0-124) Total Protein 6.6 g/dL (6.4-8.2) Albumin 3.0 g/dL (3.4-5.0) Albumin/Globulin Ratio 0.8 (1.0-1.7) White Blood Count 4.0 x10^3/uL (4.0-11.0) Red Blood Count 3.85 x10^6/uL (3.50-5.40) Hemoglobin 12.0 g/dL (12.0-15.5) Hematocrit 36.7 % (36.0-47.0) Mean Corpuscular Volume 95 fL (79-100) Mean Corpuscular Hemoglobin 31 pg (25-35) Mean Corpuscular Hemoglobin Concent 33 g/dL (31-37) Red Cell Distribution Width 13.7 % (11.5-14.5) Platelet Count 145 x10^3/uL (140-400) Neutrophils (%) (Auto) 46 % (31-73) Lymphocytes (%) (Auto) 41 % (24-48) Monocytes (%) (Auto) 11 % (0-9) Eosinophils (%) (Auto) 1 % (0-3) Basophils (%) (Auto) 1 % (0-3) Neutrophils # (Auto) 1.9 x10^3uL (1.8-7.7) Lymphocytes # (Auto) 1.7 x10^3/uL (1.0-4.8) Monocytes # (Auto) 0.4 x10^3/uL (0.0-1.1) Eosinophils # (Auto) 0.0 x10^3/uL (0.0-0.7) Basophils # (Auto) 0.0 x10^3/uL (0.0-0.2) Assessment and Plan Assessmemt and Plan Problems Medical Problems: (1) Carbon monoxide exposure Status: Acute (2) Dementia Status: Acute Comment Review of Relevant I have reviewed the following items emma (where applicable) has been applied. Labs Laboratory Tests Test 12/24/18 07:57 12/24/18 08:17 12/24/18 09:15 12/25/18 07:00 O2 Saturation 98 % (92-99) Arterial Blood pH 7.44 (7.35-7.45) Arterial Blood pCO2 at Patient Temp 39 mmHg (35-46) Arterial Blood pO2 at Patient Temp 124 mmHg (65-108) Arterial Blood HCO3 25 mmol/L (21-28) Arterial Blood Base Excess 1 mmol/L (-3-3) Oxyhemoglobin 95.0 % Methemoglobin 0.4 % (0.0-1.9) Carbon Monoxide, Quantitative 2.6 % (0.0-1.9) FiO2 32 White Blood Count 4.0 x10^3/uL (4.0-11.0) 4.0 x10^3/uL (4.0-11.0) Red Blood Count 4.06 x10^6/uL (3.50-5.40) 3.85 x10^6/uL (3.50-5.40) Hemoglobin 12.8 g/dL (12.0-15.5) 12.0 g/dL (12.0-15.5) Hematocrit 37.8 % (36.0-47.0) 36.7 % (36.0-47.0) Mean Corpuscular Volume 93 fL (79-100) 95 fL (79-100) Mean Corpuscular Hemoglobin 32 pg (25-35) 31 pg (25-35) Mean Corpuscular Hemoglobin Concent 34 g/dL (31-37) 33 g/dL (31-37) Red Cell Distribution Width 13.8 % (11.5-14.5) 13.7 % (11.5-14.5) Platelet Count 231 x10^3/uL (140-400) 145 x10^3/uL (140-400) Neutrophils (%) (Auto) 53 % (31-73) 46 % (31-73) Lymphocytes (%) (Auto) 35 % (24-48) 41 % (24-48) Monocytes (%) (Auto) 11 % (0-9) 11 % (0-9) Eosinophils (%) (Auto) 1 % (0-3) 1 % (0-3) Basophils (%) (Auto) 1 % (0-3) 1 % (0-3) Neutrophils # (Auto) 2.1 x10^3uL (1.8-7.7) 1.9 x10^3uL (1.8-7.7) Lymphocytes # (Auto) 1.4 x10^3/uL (1.0-4.8) 1.7 x10^3/uL (1.0-4.8) Monocytes # (Auto) 0.4 x10^3/uL (0.0-1.1) 0.4 x10^3/uL (0.0-1.1) Eosinophils # (Auto) 0.0 x10^3/uL (0.0-0.7) 0.0 x10^3/uL (0.0-0.7) Basophils # (Auto) 0.0 x10^3/uL (0.0-0.2) 0.0 x10^3/uL (0.0-0.2) Sodium Level 136 mmol/L (136-145) 137 mmol/L (136-145) Potassium Level 4.3 mmol/L (3.5-5.1) 4.5 mmol/L (3.5-5.1) Chloride Level 100 mmol/L (98-107) 101 mmol/L (98-107) Carbon Dioxide Level 28 mmol/L (21-32) 26 mmol/L (21-32) Anion Gap 8 (6-14) 10 (6-14) Blood Urea Nitrogen 11 mg/dL (7-20) 9 mg/dL (7-20) Creatinine 0.5 mg/dL (0.6-1.0) 0.4 mg/dL (0.6-1.0) Estimated GFR (Cockcroft-Gault) 150.8 195.1 BUN/Creatinine Ratio 22 (6-20) Glucose Level 103 mg/dL (70-99) 90 mg/dL (70-99) Calcium Level 9.9 mg/dL (8.5-10.1) 10.1 mg/dL (8.5-10.1) Total Bilirubin 0.3 mg/dL (0.2-1.0) Aspartate Amino Transf (AST/SGOT) 7 U/L (15-37) Alanine Aminotransferase (ALT/SGPT) 10 U/L (14-59) Alkaline Phosphatase 77 U/L (46-116) Creatine Kinase 12 U/L (26-192) Creatine Kinase MB (Mass) < 0.5 ng/mL (0.0-3.6) Creatine Kinase MB Relative Index % (0-4) Troponin I Quantitative < 0.017 ng/mL (0.000-0.055) [id number]-Type Natriuretic Peptide 61 pg/mL (0-124) Total Protein 6.6 g/dL (6.4-8.2) Albumin 3.0 g/dL (3.4-5.0) Albumin/Globulin Ratio 0.8 (1.0-1.7) Laboratory Tests Test 12/24/18 09:15 12/25/18 07:00 Sodium Level 136 mmol/L (136-145) 137 mmol/L (136-145) Potassium Level 4.3 mmol/L (3.5-5.1) 4.5 mmol/L (3.5-5.1) Chloride Level 100 mmol/L (98-107) 101 mmol/L (98-107) Carbon Dioxide Level 28 mmol/L (21-32) 26 mmol/L (21-32) Anion Gap 8 (6-14) 10 (6-14) Blood Urea Nitrogen 11 mg/dL (7-20) 9 mg/dL (7-20) Creatinine 0.5 mg/dL (0.6-1.0) 0.4 mg/dL (0.6-1.0) Estimated GFR (Cockcroft-Gault) 150.8 195.1 BUN/Creatinine Ratio 22 (6-20) Glucose Level 103 mg/dL (70-99) 90 mg/dL (70-99) Calcium Level 9.9 mg/dL (8.5-10.1) 10.1 mg/dL (8.5-10.1) Total Bilirubin 0.3 mg/dL (0.2-1.0) Aspartate Amino Transf (AST/SGOT) 7 U/L (15-37) Alanine Aminotransferase (ALT/SGPT) 10 U/L (14-59) Alkaline Phosphatase 77 U/L (46-116) Creatine Kinase 12 U/L (26-192) Creatine Kinase MB (Mass) < 0.5 ng/mL (0.0-3.6) Creatine Kinase MB Relative Index % (0-4) Troponin I Quantitative < 0.017 ng/mL (0.000-0.055) [id number]-Type Natriuretic Peptide 61 pg/mL (0-124) Total Protein 6.6 g/dL (6.4-8.2) Albumin 3.0 g/dL (3.4-5.0) Albumin/Globulin Ratio 0.8 (1.0-1.7) White Blood Count 4.0 x10^3/uL (4.0-11.0) Red Blood Count 3.85 x10^6/uL (3.50-5.40) Hemoglobin 12.0 g/dL (12.0-15.5) Hematocrit 36.7 % (36.0-47.0) Mean Corpuscular Volume 95 fL (79-100) Mean Corpuscular Hemoglobin 31 pg (25-35) Mean Corpuscular Hemoglobin Concent 33 g/dL (31-37) Red Cell Distribution Width 13.7 % (11.5-14.5) Platelet Count 145 x10^3/uL (140-400) Neutrophils (%) (Auto) 46 % (31-73) Lymphocytes (%) (Auto) 41 % (24-48) Monocytes (%) (Auto) 11 % (0-9) Eosinophils (%) (Auto) 1 % (0-3) Basophils (%) (Auto) 1 % (0-3) Neutrophils # (Auto) 1.9 x10^3uL (1.8-7.7) Lymphocytes # (Auto) 1.7 x10^3/uL (1.0-4.8) Monocytes # (Auto) 0.4 x10^3/uL (0.0-1.1) Eosinophils # (Auto) 0.0 x10^3/uL (0.0-0.7) Basophils # (Auto) 0.0 x10^3/uL (0.0-0.2) Medications Current Medications Albuterol/ Ipratropium (Duoneb) 3 ml 1X ONCE NEB Last administered on at 08:28; Start 12/24/18 at 08:00; Stop 12/24/18 at 08:03; Status DC Albuterol/ Ipratropium (Duoneb) 3 ml STK-MED ONCE .ROUTE ; Start 12/24/18 at 08: 03; Stop 12/24/18 at 08:05; Status DC Ondansetron HCl (Zofran) 4 mg PRN Q6HRS PRN IV NAUSEA/VOMITING; Start 12/24/18 at 12:45 Acetaminophen (Tylenol) 650 mg PRN Q6HRS PRN PO Headaches, Temp > 101.5F; Start 12/24/18 at 12:45 Senna/Docusate Sodium (Senna Plus) 1 tab BID PO Last administered on 12/24/18at 20:04; Start 12/24/18 at 13:00 Heparin Sodium (Porcine) (Heparin Sodium) 5,000 unit Q8HRS SQ Last administered on 12/24/18at 20:07; Start 12/24/18 at 13:00 Divalproex Sodium (Depakote Sprinkles) 250 mg TID PO Last administered on at 20:05; Start 12/24/18 at 14:00 Lisinopril (Prinivil) 40 mg DAILY PO ; Start 12/24/18 at 13:00 Potassium Chloride (Klor-Con) 10 meq DAILY PO ; Start 12/24/18 at 13:00 Docusate Sodium (Colace) 100 mg BID PO Last administered on 12/24/18at 20:04; Start 12/24/18 at 13:00 Citalopram Hydrobromide (CeleXA) 10 mg DAILY PO ; Start 12/24/18 at 13:00 Hyoscyamine (Anaspaz) 0.125 mg BID PO Last administered on 12/24/18 20:05; Start 12/24/18 at 13:00 Megestrol Acetate (Megace) 400 mg TIDAC PO Last administered on 12/24/18 18:33 ; Start 12/24/18 at 16:30 Risperidone (RisperDAL) 2 mg QHS PO Last administered on 12/24/18 20:04; Start 12/24/18 at 21:00 Albuterol/ Ipratropium (Duoneb) 3 ml RTQID NEB Last administered on 12/25/18at 07 :31; Start 12/24/18 at 16:00 Active Scripts Active Reported Risperidone 2 Mg Tablet 2 Mg PO HS Hyoscyamine Sulfate 0.125 Mg Tablet 0.125 Mg PO BID Divalproex Sodium 125 Mg Cap.sprink 250 Mg PO TID Dok (Docusate Sodium) 100 Mg Tablet 100 Mg PO BID Lexapro (Escitalopram Oxalate) 5 Mg Tablet 5 Mg PO DAILY Lisinopril 40 Mg Tablet 40 Mg PO DAILY Potassium Chloride 10 Meq Capsule.er 10 Meq PO DAILY Megace (Megestrol Acetate) 400 Mg/10 Ml Oral.susp 400 Mg PO TIDAC Vitals/I & O Vital Sign - Last 24 Hours 12/24/18 12/24/18 12/24/18 12/24/18 08:45 09:00 09:15 09:30 Pulse 106 96 94 92 Resp 11 12 11 11 Pulse Ox 100 100 12/24/18 12/24/18 12/24/18 12/24/18 09:45 10:00 10:15 10:30 Pulse 106 106 110 110 Resp 14 13 14 14 12/24/18 12/24/18 12/24/18 12/24/18 10:45 11:00 15:00 15:50 Temp 99.3 99.3 Pulse 116 120 115 Resp 11 15 17 B/P (MAP) 134/87 (103) Pulse Ox 99 O2 Delivery Nasal Cannula Nasal Cannula O2 Flow Rate 1.0 1.0 12/24/18 12/24/18 12/24/18 12/24/18 16:25 19:00 20:00 20:37 Temp 98.6 98.6 Pulse 107 Resp 18 B/P (MAP) 125/85 (98) Pulse Ox 98 96 97 O2 Delivery Nasal Cannula Nasal Cannula Nasal Cannula Nasal Cannula O2 Flow Rate 1.0 1.0 1.0 1.0 12/24/18 12/25/18 12/25/18 23:00 03:00 07:15 Temp 97.9 97.5 97.8 97.9 97.5 97.8 Pulse 105 77 74 Resp 18 18 18 B/P (MAP) 103/65 (78) 105/68 (80) 108/69 (82) Pulse Ox 98 99 95 O2 Delivery Nasal Cannula Nasal Cannula Nasal Cannula O2 Flow Rate 1.0 1.0 1.0 Intake and Output 12/24/18 12/24/18 12/25/18 15:00 23:00 07:00 Intake Total 50 ml Balance 50 ml KO MCKEON MD Dec 25, 2018 08:43
[2018-12-25] MEDS: MEGESTROL 400 MG/10 ML ORAL.SUSP. PO SCH ×3 (09:38→16:46)
[2018-12-25] MEDS: HYOSCYAMINE 0.125 MG TAB.RAPDIS PO SCH ×2 (09:46→20:31)
[2018-12-25] MEDS: CITALOPRAM 10 MG TABLET. PO SCH (09:46)
[2018-12-25] MEDS: DOCUSATE SODIUM 100 MG CAPSULE. PO SCH ×2 (09:47→20:31)
[2018-12-25] MEDS: DIVALPROEX SPRINKLES 125 MG CAPSULE. PO SCH ×3 (09:48→20:31)
[2018-12-25] MEDS: POTASSIUM CHLORIDE 10 MEQ TABLET.ER. PO SCH (09:48)
[2018-12-25] MEDS: LISINOPRIL 20 MG TABLET PO SCH (09:49)
[2018-12-25] MEDS: SENNOSIDES/DOCUSATE 8.6/50MG TABLET. PO SCH ×2 (09:50→20:31)
[2018-12-25 10:59] VITALS: BP 112/70
[2018-12-25 15:06] VITALS: BP 119/71
[2018-12-25 19:00] VITALS: BP 103/64
[2018-12-25] MEDS: risperiDONE 1 MG TABLET. PO SCH (20:31)
[2018-12-25 23:00] VITALS: BP 101/73
[2018-12-26 03:00] VITALS: BP 97/73
[2018-12-26] MEDS: HEPARIN for SUB-Q USE 5,000 UNIT/ML VIAL. SQ SCH (05:40)
[2018-12-26 07:00] VITALS: BP 96/70
[2018-12-26] MEDS: IPRATRPIUM/ALBUTEROL 0.5/2.5MG 3 ML NEBU. NEB SCH ×2 (07:36→11:25)
[2018-12-26] MEDS: LISINOPRIL 20 MG TABLET PO SCH (09:00)
[2018-12-26] MEDS: MEGESTROL 400 MG/10 ML ORAL.SUSP. PO SCH ×2 (09:03→11:08)
[2018-12-26] MEDS: SENNOSIDES/DOCUSATE 8.6/50MG TABLET. PO SCH (09:04)
[2018-12-26] MEDS: POTASSIUM CHLORIDE 10 MEQ TABLET.ER. PO SCH (09:05)
[2018-12-26] MEDS: DIVALPROEX SPRINKLES 125 MG CAPSULE. PO SCH (09:05)
[2018-12-26] MEDS: CITALOPRAM 10 MG TABLET. PO SCH (09:05)
[2018-12-26] MEDS: HYOSCYAMINE 0.125 MG TAB.RAPDIS PO SCH (09:05)
[2018-12-26] MEDS: DOCUSATE SODIUM 100 MG CAPSULE. PO SCH (09:05)
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
--- NOTE | 2018-12-26 10:42 | NUR ---
SS following up with discharge planning. SS phoned and faxed clinical updates to [facility], ; fax [phone].
[2018-12-26 10:48] VITALS: BP 103/69
--- NOTE | 2018-12-26 12:04 | DISCH ---
DISCHARGE DISCHARGE INFORMATION: DISCHARGE DATE: Dec 26, 2018 FINAL DIAGNOSIS Problems Medical Problems: (1) Carbon monoxide exposure Status: Acute (2) Dementia Status: Acute CONDITION ON DISCHARGE: Stable CODE STATUS: Code Status: Full POST DISCHARGE ORDERS: ACTIVITY ORDERS: Resume previous activity WEIGHT BEARING STATUS: As tolerated DIET AFTER DISCHARGE: Dysphagia II w/honey thick liquids. CHECKS AFTER DISCHARGE: CHECKS AFTER DISCHARGE: Check blood press - daily, Check blood sugar, ac/hs, Check your Temp as needed, Weigh Yourself Daily TREATMENT/EQUIPMENT ORDERS: ADAPTIVE EQUIPMENT NEEDED: None Speech Language Pathology For: Evaluation/Treatment DISCHARGE MEDICATIONS: Home Meds Reported Medications Risperidone (RISPERIDONE) 2 Mg Tablet, 2 MG PO HS for insomnia 12/24/18 Hyoscyamine Sulfate (HYOSCYAMINE SULFATE) 0.125 Mg Tablet, 0.125 MG PO BID for ibs 12/24/18 Divalproex Sodium (DIVALPROEX SODIUM) 125 Mg Cap.sprink, 250 MG PO TID for seizure/ mood stabilizer 12/24/18 Docusate Sodium (DOK) 100 Mg Tablet, 100 MG PO BID for constipation 12/24/18 Escitalopram Oxalate (LEXAPRO) 5 Mg Tablet, 5 MG PO DAILY, TAB 11/29/16 Lisinopril (LISINOPRIL) 40 Mg Tablet, 40 MG PO DAILY for FOR HYPERTENSION, #30 TAB 0 Refills 11/29/16 Potassium Chloride (POTASSIUM CHLORIDE) 10 Meq Capsule.er, 10 MEQ PO DAILY, #2 TAB.SR 11/29/16 Megestrol Acetate (MEGACE) 400 Mg/10 Ml Oral.susp, 400 MG PO TIDAC 11/29/16 KO MCKEON MD Dec 26, 2018 12:04
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
--- NOTE | 2018-12-26 14:05 | NUR ---
Patient discharged back to [facility]. This RN gave report to Lori gupta [facility], all questions answered with call back number given in case questions were to arise. Patient alert, stable, and at baseline upon discharge. IV line discontinued. All belongings with patient.
== END 2018-12-26 14:08 | DRG 917 ==
LOC: ER 07:49 → ED HOLD 08:54 → 5 NORTH 11:17
PROVIDERS: ADMIT Internal Medicine; ATTEND Internal Medicine
DX: T58.91XA Toxic effect of carbon monoxide from unspecified source, accidental (unintentional), initial encounter (principal); G92 Toxic encephalopathy; F41.9 Anxiety disorder, unspecified; J44.9 Chronic obstructive pulmonary disease, unspecified; I10 Essential (primary) hypertension; F32.9 Major depressive disorder, single episode, unspecified; G30.9 Alzheimer's disease, unspecified; F02.80 Dementia in other diseases classified elsewhere, unspecified severity, without behavioral disturbance, psychotic disturbance, mood disturbance, and anxiety; I73.9 Peripheral vascular disease, unspecified; M19.90 Unspecified osteoarthritis, unspecified site; Y92.89 Other specified places as the place of occurrence of the external cause; Z82.0 Family history of epilepsy and other diseases of the nervous system
CPT/HCPCS: 36415; 36600; 71045; 80048; 80053; 82553; 82805; 83880; 84484; 85025; 87641; 93005; 94640; 94760; J1644; J7620; 92610; 99285-25

== ENCOUNTER 2020-06-16 13:46 | Emergency (ER) | payer MEDICARE, OTHER ==
[~2020-06-16] VITALS: Ht 152.4 cm; Wt 60.0 kg
[~2020-06-16 13:46] MED LIST changes: +DIVA125C3 PO; +DOCU100T PO; +HYOS0.1279 PO; +RISP2TAB3 PO
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
--- NOTE | 2020-06-16 14:51 | RAD ---
CT HEAD INDICATION: Altered mental status COMPARISON: 08/24/2018. Exposure: One or more of the following individualized dose reduction techniques were utilized for this examination: 1. Automated exposure control 2. Adjustment of the mA and/or kV according to patient size 3. Use of iterative reconstruction technique TECHNIQUE: 5 mm contiguous axial images were obtained from the skull base to the vertex in both bone and soft tissue algorithm. FINDINGS: Moderate bilateral periventricular white matter hypodensities likely chronic small vessel ischemic disease. No evidence of acute intracranial hemorrhage. No extra-axial fluid collections. No mass effect or midline shift. Ventricular size is appropriate. Basal cisterns are patent. No fractures identified.Castro-white differentiation is preserved.Globes and orbits are within normal limits. Paranasal sinuses and mastoid air cells are clear. IMPRESSION: No acute intracranial findings. Electronically signed by: Martin Perez MD (06/16/2020 2:48 PM) [id number]
--- NOTE | 2020-06-16 14:52 | EKG ---
[facility] [address] [place] [address] Test Date: 2020-06-16 Test Time: 14:02:08 Pat Name: KEVIN HUDSON Department: Room: Gender: F Shape Carver: SUSHILA : 1955 Requested By: GERA BRIAN Order Number: [id number] Reading MD: Measurements Intervals Gerry Rate: 108 P: 27 WV: 156 QRS: 0 QRSD: 68 T: 36 QT: 312 QTc: 422 Interpretive Statements SINUS TACHYCARDIA LEFTWARD AXIS OTHERWISE NORMAL ECG RI6.02 No previous ECG available for comparison
--- NOTE | 2020-06-16 15:05 | RAD ---
Single AP view of the chest. Comparison: 12/24/2018. Indication: Altered mental status Findings: The heart is enlarged but stable. There is no pneumothorax or effusion. No air space or interstitial disease. Impression: 1. No acute cardiopulmonary process. Electronically signed by: Jeremy Lion MD (06/16/2020 3:02 PM) [id number]
--- NOTE | 2020-06-16 15:08 | RAD ---
AP and lateral views of the left knee no comparison. INDICATION: Joint effusion. FINDINGS: No fracture subluxation dislocation. No significant joint effusion. There is significant degenerative change with narrowing of the medial and lateral joint spaces. There is tricompartmental osteophyte formation. Electronically signed by: Jeremy Lion MD (06/16/2020 3:05 PM) [id number]
[2020-06-16 15:27] LABS: BILIRUBIN,URINE NEGATIVE (NEG); CLARITY,URINE CLEAR; COLOR,URINE AMBER; NITRITE,URINE NEGATIVE (NEG); PH,URINE 6.5 (<5.0-8.0); PROTEIN,URINE NEGATIVE (NEG-TRACE)
[2020-06-16 15:27] LABS: BASO % 0 % (0-3); EOS % 0 % (0-3); HEMATOCRIT 36.8 % (36.0-47.0); HEMOGLOBIN 12.7 g/dL (12.0-15.5); LYMPH # 1.3 x10^3/uL (1.0-4.8); LYMPH % 12 % (24-48); MEAN CORPUSCULAR HEMOGLOBIN 32 pg (25-35); MEAN CORPUSCULAR HGB CONC 35 g/dL (31-37); MEAN CORPUSCULAR VOLUME 92 fL (79-100); MONO # 1.9 x10^3/uL (0.0-1.1); MONO % 18 % (0-9); NEUT # 7.2 x10^3/uL (1.8-7.7); NEUT % 69 % (31-73); PLATELET COUNT 356 x10^3/uL (140-400); RED BLOOD COUNT 4.02 x10^6/uL (3.50-5.40); RED CELL DISTRIBUTION WIDTH 13.6 % (11.5-14.5); WHITE BLOOD COUNT 10.4 x10^3/uL (4.0-11.0)
[2020-06-16 15:42] LABS: PROTHROMBIN TIME PATIENT 13.6 SEC (11.7-14.0)
[2020-06-16 15:43] LABS: HYALINE CASTS, URINE FEW /HPF
[2020-06-16 15:44] LABS: BACTERIA,URINE 0 /HPF (0-FEW); WBC,URINE 0 /HPF (0-4)
[2020-06-16 16:11] LABS: ALBUMIN 2.3 g/dL (3.4-5.0); ALBUMIN/GLOBULIN RATIO 0.5 (1.0-1.7); ALK PHOS 80 U/L (46-116); ALT (SGPT) 21 U/L (14-59); ANION GAP 5 (6-14); AST (SGOT) 12 U/L (15-37); BLOOD UREA NITROGEN 13 mg/dL (7-20); BUN/CREATININE RATIO 22 (6-20); CALCIUM 9.3 mg/dL (8.5-10.1); CARBON DIOXIDE 26 mmol/L (21-32); CHLORIDE 95 mmol/L (98-107); CREATINE KINASE 61 U/L (26-192); CREATININE 0.6 mg/dL (0.6-1.0); GFR 121.4; GLUCOSE 112 mg/dL (70-99); SODIUM 126 mmol/L (136-145); TOTAL BILIRUBIN 0.5 mg/dL (0.2-1.0); TOTAL PROTEIN 6.5 g/dL (6.4-8.2)
[2020-06-16 16:20] LABS: % LYMPHS 12 % (24-48); % MONOS 23 % (0-10); % SEGS 65 % (35-66)
[2020-06-16 16:21] LABS: PLT ESTIMATE ADEQUATE (ADEQUATE)
[2020-06-16 16:27] LABS: C-REACTIVE PROTEIN 112.2 mg/L (0-3.3)
[2020-06-16] MEDS ORDERED: IOHEXOL 350 MG/ML 100 ML VIAL. IV ONE (16:45)
[2020-06-16] MEDS ORDERED: IV NORMAL SALINE 500ML BAG 500 ML IV ONE (16:45)
[2020-06-16] MEDS ORDERED: CONTRAST GIVEN. MC PRN (16:45)
[2020-06-16 16:49] LABS: VAL ACID 66 mcg/mL (50-100)
--- NOTE | 2020-06-16 17:23 | RAD ---
CT ANGIOGRAPHY CHEST History: Shortness of breath Technique: CT of the chest was performed with intravenous contrast. PE protocol. Maximum intensity projection coronal and sagittal reconstructions were performed. Exposure: One or more of the following individualized dose reduction techniques were utilized for this examination: 1. Automated exposure control 2. Adjustment of the mA and/or kV according to patient size 3. Use of iterative reconstruction technique. Comparison: None Findings: Chest: No central pulmonary embolism. Evaluation for small subsegmental pulmonary emboli within the lower lobes is significantly degraded by respiratory motion. No aortic aneurysm or dissection. No pathologic lymphadenopathy. Mild bronchial wall thickening. No consolidation or pleural effusion. No pneumothorax. Upper abdomen: The imaged upper abdomen is unremarkable. Bones: No pathologic osseous lesions. Impression: 1. No large pulmonary embolism. Evaluation for small pulmonary emboli within the lower lobes is significantly degraded by respiratory motion. 2. Mild bronchial thickening, may indicate bronchitis. Electronically signed by: Derian Guerrero DO (06/16/2020 5:20 PM) [facility]
[2020-06-16] MEDS ORDERED: IV NORMAL SALINE 1000ML BAG 1,000 ML IV ONE (19:15)
[2020-06-16 21:23] VITALS: BP 115/68
--- NOTE | 2020-06-17 03:04 | EKG ---
[facility] [address] [place] [address] Test Date: 2020-06-16 Test Time: 19:04:04 Pat Name: KEVIN HUDSON Department: Room: Gender: [employer] Dean: : 1955 Requested By: GERA BRIAN Order Number: [id number] Reading MD: Measurements Intervals [place] Rate: 114 P: 2 [place]: 146 QRS: -7 QRSD: 70 T: 39 QT: 304 QTc: 422 Interpretive Statements SINUS TACHYCARDIA LEFTWARD AXIS OTHERWISE NORMAL ECG RI6.02 No previous ECG available for comparison
== END 2020-06-16 22:08 | disposition home or self-care (01) ==
LOC: ER 13:46
DX: G30.9 Alzheimer's disease, unspecified (principal); F02.80 Dementia in other diseases classified elsewhere, unspecified severity, without behavioral disturbance, psychotic disturbance, mood disturbance, and anxiety; E87.1 Hypo-osmolality and hyponatremia; E86.0 Dehydration; M17.12 Unilateral primary osteoarthritis, left knee; J44.9 Chronic obstructive pulmonary disease, unspecified; I10 Essential (primary) hypertension; F32.9 Major depressive disorder, single episode, unspecified; F41.9 Anxiety disorder, unspecified; Z87.891 Personal history of nicotine dependence
CPT/HCPCS: 36415; 70450; 71045; 71275; 73560; 80053; 80164; 81001; 82550; 83880; 84484; 85007; 85025; 85610; 85730; 86140; 87040; 87086; 93005; 96360; 96361; 99285; J7030; J7040; Q9967